=== PATIENT | male | born 1940 | race Caucasian/White ===

== ENCOUNTER 2019-07-26 05:56 | Inpatient (IN) | payer MEDICARE ==
[2019-07-25 12:05] LABS: BASOPHILS % (AUTO) 0.9 % (0-1); EOSINOPHILS # (AUTO) 0.2 X10'3 (0-0.9); EOSINOPHILS % (AUTO) 7.3 % (0-6); HEMATOCRIT 37.5 % (42.0-52.0); HEMOGLOBIN 12.6 g/dl (14.0-17.9); LYMPHOCYTES # (AUTO) 0.8 X10'3 (1.1-4.8); LYMPHOCYTES % (AUTO) 25.1 % (21-51); MEAN CORPUSCULAR HEMOGLOBIN 31.2 PG (27.0-31.0); MEAN CORPUSCULAR HGB CONC 33.6 g/dL (33.0-36.5); MEAN CORPUSCULAR VOLUME 92.8 FL (78-98); MEAN PLATELET VOLUME 7.9 FL (7.4-10.4); MONOCYTES # (AUTO) 0.3 X10'3 (0-0.9); MONOCYTES % (AUTO) 9.5 % (2-12); NEUTROPHILS # (AUTO) 1.9 X10'3 (1.8-7.7); NEUTROPHILS % (AUTO) 57.2 % (42-75); PLATELET COUNT 154 X10'3 (140-440); RED BLOOD COUNT 4.04 X10'6 (4.70-6.10); RED CELL DISTRIBUTION WIDTH 14.2 % (11.5-14.5); WHITE BLOOD COUNT 3.4 X10'3 (4.5-11.0)
[2019-07-25 12:15] LABS: ALBUMIN 3.6 G/DL (3.4-5.0); ANION GAP 5 (8-16); BLOOD UREA NITROGEN 24 MG/DL (7-18); BUN/CREATININE RATIO 16.1 (5.4-32.0); CALCIUM 8.6 MG/DL (8.5-10.1); CHLORIDE 108 MMOL/L (99-107); CREATININE 1.49 MG/DL (0.60-1.10); GLUCOSE 96 MG/DL (70-104); POTASSIUM 4.4 MMOL/L (3.5-5.1); SODIUM 142 MMOL/L (135-145); TOTAL CARBON DIOXIDE 28.7 MMOL/L (24-32); eGFR 45 ML/MIN
[2019-07-25 12:16] LABS: PARTIAL THROMBOPLASTIN TIME 31 SECONDS (22-32)
[2019-07-26] VITALS (18 sets, daily range): BP systolic 123–179; BP diastolic 47–99
[~2019-07-26] VITALS: Ht 185.4 cm; Wt 93.1 kg
[~2019-07-26 05:56] MED LIST: CELE200C PO; CLOP75TA15 PO; CLOP75TA8 PO; DOXY50CA2 PO; GABA-769 PO; HYDR200T84 PO; METO50TA16 PO; PROBIOTIC BLEN1 EACH PO; SIMV80TA2 PO; WARF3TAB PO; WARF6TAB PO
[2019-07-26] MEDS ORDERED: diphenhydrAMINE 25mg capsule PO PRN (06:15)
[2019-07-26] MEDS ORDERED: acetylcysteine 200 MG/ml 4ml vial PO PRN (06:15)
[2019-07-26] MEDS ORDERED: LORazepam 0.5 MG tablet PO PRN (06:15)
[2019-07-26] MEDS ORDERED: ASPI-611 PO (06:39)
[2019-07-26] MEDS ORDERED: ATOR40TA PO (06:39)
[2019-07-26] MEDS ORDERED: LEVO125T PO (06:39)
[2019-07-26] MEDS ORDERED: sodium bicarbonate inj. 100 ML in dextrose 5%-water 1,000 ML IV ONE (06:45)
[2019-07-26] MEDS ORDERED: LIDOcaine/PRILOcaine 5gm cream TP ONE (07:15)
[2019-07-26] MEDS ORDERED: nitroGLYCERIN-Tridil 50MG/D5W 250 ML IV ONE (07:37)
[2019-07-26] MEDS ORDERED: LIDOcaine 1% (10mg/ml)w/preservative injection 20ml MDV ONE (07:38)
[2019-07-26] MEDS ORDERED: midazolam 2 mg/2 ml injection ONE (07:38)
[2019-07-26] MEDS ORDERED: heparin 1,000unit/ml 10ml vial 10 ML ONE (07:38)
[2019-07-26] MEDS ORDERED: fentaNYL/PF 50MCG/1 ML 2ML syringe ONE (07:38)
[2019-07-26] MEDS ORDERED: iohexol 350 MG/ML 50ML vial IV ONE (07:38)
[2019-07-26] MEDS ORDERED: iohexol 350MG/ML 100ml bottle IV ONE (07:38)
[2019-07-26] MEDS ORDERED: verapamil 2.5 mg/ml inj IV ONE (07:38)
[2019-07-26] MEDS ORDERED: iohexol 350 MG/1 ML 200ml bottle ONE (08:43)
[2019-07-26] MEDS ORDERED: heparin 25,000 UNIT/250ml bag 250 ML IV ONE (08:55)
[2019-07-26] MEDS ORDERED: heparin 1,000 UNITS/NS 500ml 500 ML ONE (09:48)
[2019-07-26] MEDS ORDERED: tirofiban 12.5mg in NS 250mL 250 ML IV ONE (10:32)
[2019-07-26] MEDS ORDERED: tirofiban 12.5mg in NS 250mL 250 ML IV SCH (11:30)
[2019-07-26] MEDS ORDERED: heparin 25,000 UNIT/250ml bag 250 ML IV SCH (12:03)
[2019-07-26] MEDS ORDERED: heparin 10,000 units/1 ML INJ IV PRN (12:05)
[2019-07-26] MEDS: sodium bicarbonate inj. 100 ML in dextrose 5%-water 1,000 ML IV SCH (15:22)
--- NOTE | 2019-07-26 15:52 | NUR ---
Problems reprioritized. Patient report given, questions answered & plan of care reviewed with JACEY Smith RN.
[2019-07-26 16:24] LABS: BASOPHILS % (AUTO) 0.7 % (0-1); EOSINOPHILS # (AUTO) 0.3 X10'3 (0-0.9); HEMATOCRIT 33.7 % (42.0-52.0); HEMOGLOBIN 11.2 g/dl (14.0-17.9); LYMPHOCYTES % (AUTO) 29.4 % (21-51); MEAN CORPUSCULAR HEMOGLOBIN 31.1 PG (27.0-31.0); MEAN CORPUSCULAR HGB CONC 33.3 g/dL (33.0-36.5); MEAN CORPUSCULAR VOLUME 93.4 FL (78-98); MEAN PLATELET VOLUME 7.5 FL (7.4-10.4); MONOCYTES # (AUTO) 0.3 X10'3 (0-0.9); MONOCYTES % (AUTO) 8.9 % (2-12); NEUTROPHILS # (AUTO) 1.7 X10'3 (1.8-7.7); PLATELET COUNT 131 X10'3 (140-440); RED BLOOD COUNT 3.61 X10'6 (4.70-6.10); RED CELL DISTRIBUTION WIDTH 14.1 % (11.5-14.5); WHITE BLOOD COUNT 3.2 X10'3 (4.5-11.0)
[2019-07-26 16:33] LABS: PARTIAL THROMBOPLASTIN TIME 31 SECONDS (22-32)
--- NOTE | 2019-07-26 18:15 | NUR ---
Patient in room MED 313. I have received report from CODY Penn and had the opportunity to ask questions and assume patient care.
[2019-07-26] MEDS ORDERED: METO50TA16 PO (21:06)
[2019-07-26] MEDS: metoprolol tartrate 25mg tablet PO SCH (21:07)
[2019-07-26] MEDS: acetylcysteine 200 MG/ml 4ml vial PO SCH (21:08)
[2019-07-27 02:00] VITALS: BP 157/56
[2019-07-27] MEDS: sodium bicarbonate inj. 100 ML in dextrose 5%-water 1,000 ML IV SCH (02:56)
[2019-07-27 04:35] LABS: BASOPHILS % (AUTO) 0.6 % (0-1); EOSINOPHILS # (AUTO) 0.2 X10'3 (0-0.9); EOSINOPHILS % (AUTO) 6.5 % (0-6); HEMATOCRIT 33.1 % (42.0-52.0); HEMOGLOBIN 11.2 g/dl (14.0-17.9); LYMPHOCYTES # (AUTO) 0.8 X10'3 (1.1-4.8); LYMPHOCYTES % (AUTO) 21.5 % (21-51); MEAN CORPUSCULAR HEMOGLOBIN 31.1 PG (27.0-31.0); MEAN CORPUSCULAR HGB CONC 33.6 g/dL (33.0-36.5); MEAN CORPUSCULAR VOLUME 92.3 FL (78-98); MEAN PLATELET VOLUME 7.5 FL (7.4-10.4); MONOCYTES # (AUTO) 0.4 X10'3 (0-0.9); MONOCYTES % (AUTO) 9.5 % (2-12); NEUTROPHILS # (AUTO) 2.4 X10'3 (1.8-7.7); NEUTROPHILS % (AUTO) 61.9 % (42-75); PLATELET COUNT 138 X10'3 (140-440); RED BLOOD COUNT 3.59 X10'6 (4.70-6.10); RED CELL DISTRIBUTION WIDTH 14.2 % (11.5-14.5); WHITE BLOOD COUNT 3.8 X10'3 (4.5-11.0)
[2019-07-27 05:03] LABS: ALBUMIN 3.1 G/DL (3.4-5.0); ANION GAP 6 (8-16); BLOOD UREA NITROGEN 22 MG/DL (7-18); BUN/CREATININE RATIO 18.2 (5.4-32.0); CALCIUM 8.3 MG/DL (8.5-10.1); CHLORIDE 109 MMOL/L (99-107); CREATININE 1.21 MG/DL (0.60-1.10); GLUCOSE 113 MG/DL (70-104); POTASSIUM 3.6 MMOL/L (3.5-5.1); SODIUM 143 MMOL/L (135-145); TOTAL CARBON DIOXIDE 28.2 MMOL/L (24-32); eGFR 58 ML/MIN
--- NOTE | 2019-07-27 06:25 | NUR ---
Patient in room MED 313. I have received report from RONNIE ROSS and had the opportunity to ask questions and assume patient care.
--- NOTE | 2019-07-27 06:29 | NUR ---
Problems reprioritized. Patient report given, questions answered & plan of care reviewed with CODY Gomez.
[2019-07-27 07:11] VITALS: BP 157/52
[2019-07-27 07:46] LABS: ISTAT Hct MIX 32 %PCV (42-52); ISTAT O2 SATURATION MIX VENOUS 67 % (60-80); ISTAT SOURCE MIX
[2019-07-27 07:46] LABS: ISTAT HGB ART 10.9 g/dl (14.0-18.0); ISTAT Hct ART 32 %PCV (42-52); ISTAT O2 SATURATION ARTERIAL 95 % (95-98); ISTAT SOURCE ART
[2019-07-27 08:00] VITALS: BP_SYST 157
[2019-07-27] MEDS: metoprolol tartrate 25mg tablet PO SCH (08:00)
[2019-07-27] MEDS ORDERED: atorvastatin 20mg tablet PO SCH (08:00)
[2019-07-27] MEDS ORDERED: levoTHYROXINE 125mcg tablet PO SCH (08:00)
[2019-07-27] MEDS ORDERED: aspirin 81mg tablet.DR PO SCH (08:00)
[2019-07-27] MEDS ORDERED: ATOR40TA PO (10:11)
[2019-07-27] MEDS ORDERED: CLOP75TA15 PO (10:11)
[2019-07-27] MEDS ORDERED: TICA90TA PO (10:16)
[2019-07-27] MEDS: acetylcysteine 200 MG/ml 4ml vial PO SCH (10:27)
[2019-07-27 10:42] LABS: CHOL/HDL RATIO 2.4 (0.00-4.99); CHOLESTEROL 113 MG/DL (0-200); HDL CHOLESTEROL 48 MG/DL (35-60); LDL CHOLESTEROL 54 MG/DL (50-100); TRIGLYCERIDES 116 MG/DL (20-135)
--- NOTE | 2019-07-27 11:29 | NUR ---
Student charting and med documentation: I have reviewed and agree with all interventions, assessments performed and documented by Juliann ROSS. Addendum: 07/27/19 at 1433 by Patricia Cano RN [place] charting and med documentation: I have reviewed and agree with all interventions, assessments performed and documented by Juliann ROSS.
--- NOTE | 2019-07-27 12:01 | NUR ---
PATIENT DISCHARGE INSTRUCTIONS GIVEN TO PATIENT INCLUDING MEDICATIONS AND FOLLOW UP APPOINTMENTS. PATIENT VERBALIZED UNDERSTANDING AND ALL QUESTIONS AND CONCERNS ADDRESSED AT THIS TIME. PIV REMOVED WITH TIP INTACT AND HEMOSTASIS ACHIEVED. PATIENT DENIED NEED FOR WHEELCHAIR. PATIENT WALK INDEPENDENTLY TO LOBBY VIA ELEVATOR. PRESCRIPTIONS FAXED [facility] ON [facility]. CALLED AND RECEIVED VERIFICATION FROM PHARMACY STAFF THAT ORDERS WERE RECEIVED AND COMPLETE AND THEY ARE WORKING ON FILLING THE MEDICATIONS AT THIS TIME.
[2019-07-27] MEDS ORDERED: warfarin 3mg tablet PO SCH (21:00)
[2019-07-28] MEDS ORDERED: celeCOXIB 100mg capsule PO SCH (08:00)
[2019-07-30] MEDS ORDERED: warfarin 3mg tablet PO SCH (21:00)
== END 2019-07-27 11:40 | disposition home or self-care (01) | DRG 247 ==
LOC: SSTAY O 05:56 → MED 3N 17:31
PROVIDERS: ADMIT Internal Medicine Cardiovascular Disease; ATTEND Internal Medicine Cardiovascular Disease
PROC: 4A023N8 Measurement of Cardiac Sampling and Pressure, Bilateral, Percutaneous Approach (ICD-10-PCS; principal; 2019-07-26)
PROC: 027135Z Dilation of Coronary Artery, Two Arteries with Two Drug-eluting Intraluminal Devices, Percutaneous Approach (ICD-10-PCS; 2019-07-26)
PROC: B2111ZZ Fluoroscopy of Multiple Coronary Arteries using Low Osmolar Contrast (ICD-10-PCS; 2019-07-26)
PROC: B3101ZZ Fluoroscopy of Thoracic Aorta using Low Osmolar Contrast (ICD-10-PCS; 2019-07-26)
DX: I25.10 Atherosclerotic heart disease of native coronary artery without angina pectoris (principal); I50.32 Chronic diastolic (congestive) heart failure; I35.0 Nonrheumatic aortic (valve) stenosis; N18.2 Chronic kidney disease, stage 2 (mild); Z79.01 Long term (current) use of anticoagulants; Z95.2 Presence of prosthetic heart valve; Z95.5 Presence of coronary angioplasty implant and graft
CPT/HCPCS: 36415; 80048; 80061; 82803; 83880; 84443; 85014; 85025; 85347; 85610; 85730; 92920; 92921; 93005; 93456; 93567; 99152; 99153; A4620; A5120; C1725; C1769; C1892; C1894; G0378; J1644; J2001; J2250; J3010; J3246; J3490; Q0163; Q9967

== ENCOUNTER 2021-10-07 13:43 | Outpatient (CLI) | payer MEDICARE ==
[~2021-10-07 13:43] MED LIST changes: +ASPI-611 PO; +ATOR-2 PO; -CELE200C PO; -CLOP75TA15 PO; -CLOP75TA8 PO; -DOXY50CA2 PO; -GABA-769 PO; -HYDR200T84 PO; +LEVO125T PO; +LOP12.5T PO; -METO50TA16 PO; -PROBIOTIC BLEN1 EACH PO; -SIMV80TA2 PO; -WARF3TAB PO; +WARF3TAB56 PO; -WARF6TAB PO; +WARF6TAB49 PO
== END 2021-10-07 23:59 | disposition home or self-care (01) ==
LOC: CARD DIAG 13:43
PROVIDERS: ATTEND Internal Medicine Cardiovascular Disease
DX: I08.1 Rheumatic disorders of both mitral and tricuspid valves (principal)
CPT/HCPCS: 93306

== ENCOUNTER 2021-10-09 14:46 | Emergency (ER) | payer MEDICARE ==
[~2021-10-09] VITALS: Ht 170.2 cm; Wt 94.1 kg
[2021-10-09 15:33] VITALS: BP 136/57
[2021-10-09 16:24] LABS: EOSINOPHILS # (AUTO) 0.1 X10'3 (0-0.9); EOSINOPHILS % (AUTO) 3.6 % (0-6); HEMATOCRIT 37.1 % (42.0-52.0); HEMOGLOBIN 11.9 g/dl (14.0-17.9); LYMPHOCYTES # (AUTO) 0.9 X10'3 (1.1-4.8); LYMPHOCYTES % (AUTO) 23.2 % (21-51); MEAN CORPUSCULAR HEMOGLOBIN 29.7 PG (27.0-31.0); MEAN CORPUSCULAR HGB CONC 32.2 g/dL (33.0-36.5); MEAN CORPUSCULAR VOLUME 92.2 FL (78-98); MEAN PLATELET VOLUME 8.3 FL (7.4-10.4); MONOCYTES # (AUTO) 0.3 X10'3 (0-0.9); MONOCYTES % (AUTO) 9.1 % (2-12); NEUTROPHILS # (AUTO) 2.3 X10'3 (1.8-7.7); NEUTROPHILS % (AUTO) 63.1 % (42-75); PLATELET COUNT 96 X10'3 (140-440); RED BLOOD COUNT 4.02 X10'6 (4.70-6.10); RED CELL DISTRIBUTION WIDTH 15.7 % (11.5-14.5); WHITE BLOOD COUNT 3.7 X10'3 (4.5-11.0)
[2021-10-09 16:39] LABS: ALANINE AMINOTRANSFERASE 60 U/L (12-78); ALBUMIN 3.8 G/DL (3.4-5.0); ALBUMIN/GLOBULIN RATIO 1.3 (1.1-1.5); ALKALINE PHOSPHATASE 103 IU/L (46-116); ANION GAP 8 (8-16); ASPARTATE AMINO TRANSFERASE 51 U/L (10-37); BILIRUBIN,TOTAL 0.6 MG/DL (0.1-1.0); BLOOD UREA NITROGEN 35 MG/DL (7-18); BUN/CREATININE RATIO 18.9 (5.4-32.0); CALCIUM 8.8 MG/DL (8.5-10.1); CHLORIDE 109 MMOL/L (99-107); CREATININE 1.85 MG/DL (0.60-1.10); GLUCOSE 100 MG/DL (70-104); POTASSIUM 4.9 MMOL/L (3.5-5.1); SODIUM 141 MMOL/L (135-145); TOTAL CARBON DIOXIDE 24.1 MMOL/L (24-32); TOTAL PROTEIN 6.8 G/DL (6.4-8.2); eGFR 35 ML/MIN
[2021-10-09] MEDS ORDERED: bumetanide 0.25mg/ml 4ml vial IV STA (16:51)
[2021-10-09] MEDS ORDERED: furosemide 20 MG/2 ML vial IV ONE (17:05)
[2021-10-09 17:17] LABS: PLATELET ESTIMATE DECREASED
[2021-10-09 17:18] LABS: BURR CELLS 1+; SCHISTOCYTES FEW
[2021-10-09] MEDS ORDERED: CELE200C PO (17:56)
[2021-10-09] MEDS ORDERED: SUMA100T16 PO (17:56)
[2021-10-09] MEDS ORDERED: OMEP40CA21 PO (17:56)
[2021-10-09] MEDS ORDERED: HYDR200T84 PO (17:56)
[2021-10-09] MEDS ORDERED: POTASSIUM BICARB 20meq eff tab 20 MEQ TABLET.EFF PO ONE (18:05)
[2021-10-09] MEDS ORDERED: POTA-207 PO (18:29)
[2021-10-09] MEDS ORDERED: FURO-150 PO (18:29)
== END 2021-10-09 18:28 | disposition home or self-care (01) ==
LOC: ER 14:46
DX: I50.9 Heart failure, unspecified (principal); R06.02 Shortness of breath; I25.10 Atherosclerotic heart disease of native coronary artery without angina pectoris; E78.00 Pure hypercholesterolemia, unspecified; G89.29 Other chronic pain; Z95.0 Presence of cardiac pacemaker; Z98.890 Other specified postprocedural states; Z88.8 Allergy status to other drugs, medicaments and biological substances; Z79.82 Long term (current) use of aspirin; Z79.899 Other long term (current) drug therapy
CPT/HCPCS: 36415; 71045; 80053; 83880; 84484; 85008; 85025; 93005; 96374; 99285; J1940

== ENCOUNTER 2021-11-06 07:10 | Day surgery (SDC) | payer MEDICARE ==
[2021-11-05 12:56] LABS: BASOPHILS % (AUTO) 1.1 % (0-1); EOSINOPHILS # (AUTO) 0.2 X10'3 (0-0.9); EOSINOPHILS % (AUTO) 4.8 % (0-6); HEMATOCRIT 37.9 % (42.0-52.0); HEMOGLOBIN 12.4 g/dl (14.0-17.9); LYMPHOCYTES % (AUTO) 25.6 % (21-51); MEAN CORPUSCULAR HEMOGLOBIN 29.5 PG (27.0-31.0); MEAN CORPUSCULAR HGB CONC 32.8 g/dL (33.0-36.5); MEAN PLATELET VOLUME 8.3 FL (7.4-10.4); MONOCYTES # (AUTO) 0.4 X10'3 (0-0.9); MONOCYTES % (AUTO) 10.5 % (2-12); NEUTROPHILS # (AUTO) 2.3 X10'3 (1.8-7.7); PLATELET COUNT 116 X10'3 (140-440); RED BLOOD COUNT 4.21 X10'6 (4.70-6.10); RED CELL DISTRIBUTION WIDTH 14.9 % (11.5-14.5)
[2021-11-05 13:01] LABS: ALBUMIN 3.8 G/DL (3.4-5.0); ANION GAP 9 (8-16); BLOOD UREA NITROGEN 47 MG/DL (7-18); BUN/CREATININE RATIO 21.6 (5.4-32.0); CALCIUM 9.1 MG/DL (8.5-10.1); CHLORIDE 105 MMOL/L (99-107); CREATININE 2.18 MG/DL (0.60-1.10); GLUCOSE 95 MG/DL (70-104); POTASSIUM 4.2 MMOL/L (3.5-5.1); SODIUM 140 MMOL/L (135-145); TOTAL CARBON DIOXIDE 25.8 MMOL/L (24-32); eGFR 29 ML/MIN
[~2021-11-06] VITALS: Ht 185.4 cm; Wt 87.8 kg
[2021-11-06] VITALS (13 sets, daily range): BP systolic 105–131; BP diastolic 45–60
[~2021-11-06 07:10] MED LIST changes: +CELE200C PO; +FURO-150 PO; +HYDR200T84 PO; +OMEP40CA21 PO; +POTA-207 PO; +SUMA100T16 PO
[2021-11-06] MEDS ORDERED: amiodarone 150mg/dext, iso-os 100 ML IV ONE (07:35)
[2021-11-06] MEDS ORDERED: atropine 0.1mg/ml 10ml syringe IV ONE (07:35)
[2021-11-06] MEDS ORDERED: diphenhydrAMINE 25mg capsule PO ONE (07:35)
[2021-11-06] MEDS ORDERED: morphine 10mg/ml inj. IV ONE (07:35)
[2021-11-06] MEDS ORDERED: LORazepam 0.5 MG tablet PO ONE (07:35)
[2021-11-06] MEDS ORDERED: MIDAZolam 1mg/ml 10ml vial IV ONE (07:35)
[2021-11-06] MEDS ORDERED: normal saline 1000ml 1,000 ML IV SCH (07:35)
[2021-11-06] MEDS ORDERED: POTA20PA40 PO (08:16)
[2021-11-06] MEDS ORDERED: FURO-149 PO (08:16)
[2021-11-06] MEDS ORDERED: AMIO200T61 PO (08:17)
== END 2021-11-06 12:25 | disposition home or self-care (01) ==
LOC: SSTAY O 07:10
PROVIDERS: ATTEND Internal Medicine Cardiovascular Disease
DX: I48.19 Other persistent atrial fibrillation (principal); I25.10 Atherosclerotic heart disease of native coronary artery without angina pectoris; I50.30 Unspecified diastolic (congestive) heart failure; E78.00 Pure hypercholesterolemia, unspecified; Z95.5 Presence of coronary angioplasty implant and graft; Z95.2 Presence of prosthetic heart valve; Z98.890 Other specified postprocedural states; Z79.01 Long term (current) use of anticoagulants
CPT/HCPCS: 36415; 80048; 85025; 85610; 92960; 93005; J0461; J2250; J2274; J7030; Q0163

== ENCOUNTER 2022-01-21 10:23 | Outpatient (CLI) | payer MEDICARE ==
[~2022-01-21 10:23] MED LIST changes: +AMIO200T61 PO; -CELE200C PO; +FURO-149 PO; -FURO-150 PO; -OMEP40CA21 PO; -POTA-207 PO; +POTA20PA40 PO; -SUMA100T16 PO
[2022-01-21 11:04] LABS: TOTAL HEMOGLOBIN 13.5 G/dl (14.0-18.0)
== END 2022-01-21 23:59 | disposition home or self-care (01) ==
LOC: RT 10:23
PROVIDERS: ATTEND Internal Medicine Cardiovascular Disease
DX: R94.2 Abnormal results of pulmonary function studies (principal); I48.91 Unspecified atrial fibrillation; M25.78 Osteophyte, vertebrae; Z79.899 Other long term (current) drug therapy
CPT/HCPCS: 71046; 85018; 94010; 94727; 94729

== ENCOUNTER 2022-03-03 13:06 | Emergency (ER) | payer MEDICARE ==
[~2022-03-03] VITALS: Ht 182.9 cm; Wt 90.0 kg
[2022-03-03 13:18] VITALS: BP 125/54
[2022-03-03] MEDS ORDERED: ACET-1059 PO (15:16)
[2022-03-03] MEDS ORDERED: acetaminophen w/codeine (30MG) #3 tablet PO ONE (15:20)
== END 2022-03-03 15:53 | disposition home or self-care (01) ==
LOC: ER 13:06
DX: M25.461 Effusion, right knee (principal); M25.561 Pain in right knee; M17.12 Unilateral primary osteoarthritis, left knee; I25.10 Atherosclerotic heart disease of native coronary artery without angina pectoris; E78.00 Pure hypercholesterolemia, unspecified; G89.29 Other chronic pain; Z95.0 Presence of cardiac pacemaker; Z98.890 Other specified postprocedural states; Z88.8 Allergy status to other drugs, medicaments and biological substances; Z79.82 Long term (current) use of aspirin; Z79.899 Other long term (current) drug therapy
CPT/HCPCS: 29505; 73560; 99283

== ENCOUNTER 2022-06-26 14:30 | Outpatient (CLI) | payer MEDICARE | END 2022-06-26 23:59 | disposition home or self-care (01) | LOC: CARD DIAG 14:30 | PROVIDERS: ATTEND Internal Medicine Cardiovascular Disease | DX: I08.9 Rheumatic multiple valve disease, unspecified (principal) | CPT/HCPCS: 93306 ==

== ENCOUNTER 2022-12-29 10:48 | Inpatient (IN) | payer MEDICARE ==
[~2022-12-29] VITALS: Ht 185.4 cm; Wt 98.2 kg
[2022-12-29] VITALS (10 sets, daily range): BP systolic 107–144; BP diastolic 57–77
[2022-12-29 11:17] LABS: BASOPHILS % (AUTO) 0.5 % (0-1); EOSINOPHILS % (AUTO) 0.2 % (0-6); HEMATOCRIT 34.6 % (42.0-52.0); HEMOGLOBIN 11.4 g/dl (14.0-17.9); LYMPHOCYTES # (AUTO) 0.4 X10'3 (1.1-4.8); LYMPHOCYTES % (AUTO) 10.8 % (21-51); MEAN CORPUSCULAR HEMOGLOBIN 30.2 PG (27.0-31.0); MEAN CORPUSCULAR VOLUME 91.4 FL (78-98); MEAN PLATELET VOLUME 7.8 FL (7.4-10.4); MONOCYTES # (AUTO) 0.3 X10'3 (0-0.9); MONOCYTES % (AUTO) 7.5 % (2-12); PLATELET COUNT 101 X10'3 (140-440); RED BLOOD COUNT 3.79 X10'6 (4.70-6.10); RED CELL DISTRIBUTION WIDTH 16.3 % (11.5-14.5); WHITE BLOOD COUNT 3.8 X10'3 (4.5-11.0)
[2022-12-29 11:25] LABS: ALANINE AMINOTRANSFERASE 68 U/L (12-78); ALBUMIN 3.5 G/DL (3.4-5.0); ALBUMIN/GLOBULIN RATIO 1.2 (1.1-1.5); ALKALINE PHOSPHATASE 127 IU/L (46-116); ANION GAP 8 (8-16); ASPARTATE AMINO TRANSFERASE 96 U/L (10-37); BILIRUBIN,TOTAL 1.2 MG/DL (0.1-1.0); BLOOD UREA NITROGEN 41 MG/DL (7-18); BUN/CREATININE RATIO 18.7 (5.4-32.0); CALCIUM 8.7 MG/DL (8.5-10.1); CHLORIDE 95 MMOL/L (99-107); CREATININE 2.19 MG/DL (0.60-1.10); GLUCOSE 162 MG/DL (70-104); POTASSIUM 3.6 MMOL/L (3.5-5.1); SODIUM 129 MMOL/L (135-145); TOTAL CARBON DIOXIDE 25.9 MMOL/L (24-32); TOTAL PROTEIN 6.4 G/DL (6.4-8.2); eGFR 29 ML/MIN
[2022-12-29 11:33] LABS: MAGNESIUM 1.9 MG/DL (1.5-2.4)
[2022-12-29] MEDS ORDERED: heparin 10,000 units/1 ML INJ IV ONE (12:00)
[2022-12-29] MEDS ORDERED: heparin 25,000 UNIT/250ml bag 250 ML IV PRN (12:00)
[2022-12-29 12:24] LABS: APTT 53 SECONDS (22-32)
[2022-12-29] MEDS ORDERED: aspirin 81mg tab.chew PO ONE (12:30)
[2022-12-29] MEDS ORDERED: magnesium Cl slow-release 64mg tablet PO PRN (12:55)
[2022-12-29] MEDS ORDERED: ondansetron/PF 4mg/2ml inj IV PRN (12:55)
[2022-12-29] MEDS ORDERED: magnesium 4gm in 100ml NS 100 ML IV PRN (12:55)
[2022-12-29] MEDS ORDERED: potassium Cl 20 mEq SR tablet PO PRN (12:55)
[2022-12-29] MEDS ORDERED: potassium Cl 40MEQ/1/2NS 520ml 520 ML IV PRN (12:55)
[2022-12-29] MEDS ORDERED: acetaminophen 325mg tablet PO PRN ×2 (12:55)
[2022-12-29] MEDS ORDERED: furosemide 40mg/4ml inj IV ONE (13:00)
--- NOTE | 2022-12-29 14:12 | NUR ---
bladder scanner 204-208 ml
[2022-12-29] MEDS ORDERED: WARF3TAB56 PO (14:31)
[2022-12-29] MEDS ORDERED: SPIR25TA5 PO (14:32)
[2022-12-29] MEDS ORDERED: FLO0.4C PO (14:34)
[2022-12-29] MEDS ORDERED: SUMA100T16 PO (14:34)
[2022-12-29] MEDS ORDERED: GUAI-652 PO (14:36)
[2022-12-29] MEDS ORDERED: amiodarone 200mg tablet PO SCH (15:00)
--- NOTE | 2022-12-29 16:00 | NUR ---
pt refused amio 200mg po. Says he only takes it once a day and he already took it in the ER. Checked med rec, shows once a day.
[2022-12-29] MEDS ORDERED: HYDR200T84 PO (16:19)
--- NOTE | 2022-12-29 18:46 | NUR ---
Student documentation: I have reviewed and agree with all interventions, assessments performed and documented by Gloria.
--- NOTE | 2022-12-29 18:47 | NUR ---
Student Medication Administration: For this medication-pass time frame, all medication were reviewed, dispensed, administered and documented per hospital policy by .
[2022-12-29] MEDS ORDERED: metolazone 2.5mg tablet PO ONE (19:15)
[2022-12-29] MEDS: DOBUTamine-DoBUTrex 500mg/D5W 250 ML IV SCH (19:24)
[2022-12-29] MEDS: K and/or MAG REPLACEMENT MC SCH (20:00)
[2022-12-29] MEDS: metoprolol tartrate 12.5mg (1/2 tablet) PO SCH (20:43)
[2022-12-29] MEDS: furosemide 40mg/4ml inj IV SCH (20:43)
[2022-12-30] VITALS (13 sets, daily range): BP systolic 96–137; BP diastolic 51–99
[2022-12-30] MEDS: levoTHYROXINE 125mcg tablet PO SCH (05:05)
--- NOTE | 2022-12-30 06:21 | NUR ---
Problems reprioritized. Patient report given, questions answered & plan of care reviewed with Loree ROSS.
[2022-12-30 06:36] LABS: BASOPHILS % (AUTO) 0.4 % (0-1); EOSINOPHILS % (AUTO) 0.1 % (0-6); HEMATOCRIT 32.1 % (42.0-52.0); HEMOGLOBIN 10.6 g/dl (14.0-17.9); LYMPHOCYTES # (AUTO) 0.3 X10'3 (1.1-4.8); LYMPHOCYTES % (AUTO) 10.4 % (21-51); MEAN CORPUSCULAR HEMOGLOBIN 29.8 PG (27.0-31.0); MEAN CORPUSCULAR HGB CONC 32.9 g/dL (33.0-36.5); MEAN CORPUSCULAR VOLUME 90.6 FL (78-98); MEAN PLATELET VOLUME 7.7 FL (7.4-10.4); MONOCYTES # (AUTO) 0.3 X10'3 (0-0.9); MONOCYTES % (AUTO) 9.8 % (2-12); NEUTROPHILS # (AUTO) 2.4 X10'3 (1.8-7.7); NEUTROPHILS % (AUTO) 79.3 % (42-75); PLATELET COUNT 89 X10'3 (140-440); RED BLOOD COUNT 3.54 X10'6 (4.70-6.10); RED CELL DISTRIBUTION WIDTH 16.5 % (11.5-14.5); WHITE BLOOD COUNT 3.1 X10'3 (4.5-11.0)
--- NOTE | 2022-12-30 06:36 | NUR ---
Patient in room PCU 3013. I have received report from CODY NORMAN, and had the opportunity to ask questions and assume patient care.
[2022-12-30 06:59] LABS: ALANINE AMINOTRANSFERASE 60 U/L (12-78); ALBUMIN 3.1 G/DL (3.4-5.0); ALBUMIN/GLOBULIN RATIO 1.2 (1.1-1.5); ALKALINE PHOSPHATASE 112 IU/L (46-116); ANION GAP 11 (8-16); ASPARTATE AMINO TRANSFERASE 81 U/L (10-37); BLOOD UREA NITROGEN 42 MG/DL (7-18); BUN/CREATININE RATIO 20.9 (5.4-32.0); CALCIUM 8.9 MG/DL (8.5-10.1); CHLORIDE 97 MMOL/L (99-107); CREATININE 2.01 MG/DL (0.60-1.10); GLUCOSE 102 MG/DL (70-104); POTASSIUM 3.2 MMOL/L (3.5-5.1); SODIUM 133 MMOL/L (135-145); TOTAL PROTEIN 5.7 G/DL (6.4-8.2); eGFR 32 ML/MIN
[2022-12-30] MEDS: K and/or MAG REPLACEMENT MC SCH ×2 (08:00→19:25)
[2022-12-30] MEDS: furosemide 40mg/4ml inj IV SCH ×3 (09:38→21:09)
[2022-12-30] MEDS: hydroxychloroquine 200mg tablet PO SCH (09:40)
[2022-12-30] MEDS: potassium Cl 20 mEq SR tablet PO PRN ×2 (09:40→14:06)
[2022-12-30] MEDS: atorvastatin 20mg tablet PO SCH (09:40)
[2022-12-30] MEDS: tamsulosin 0.4mg capsule PO SCH (09:41)
[2022-12-30] MEDS: amiodarone 200mg tablet PO SCH (09:41)
[2022-12-30] MEDS: metoprolol tartrate 12.5mg (1/2 tablet) PO SCH ×2 (12:10→19:19)
[2022-12-30] MEDS: DOBUTamine-DoBUTrex 500mg/D5W 250 ML IV SCH (12:10)
[2022-12-30] MEDS ORDERED: metolazone 2.5mg tablet PO ONE (12:15)
[2022-12-30] MEDS ORDERED: metolazone 2.5mg tablet PO SCH (13:38)
[2022-12-30] MEDS ORDERED: albuterol 2.5 MG/3 ML nebule NEB SCH (14:00)
[2022-12-30] MEDS: potassium Cl 20 mEq SR tablet PO SCH (17:51)
--- NOTE | 2022-12-30 18:33 | NUR ---
Problems reprioritized. Patient report given, questions answered & plan of care reviewed with CODY NORMAN.
[2022-12-30] MEDS: metolazone 2.5mg tablet PO SCH (19:19)
[2022-12-31] VITALS (14 sets, daily range): BP systolic 94–134; BP diastolic 50–70
[2022-12-31] MEDS: DOBUTamine-DoBUTrex 500mg/D5W 250 ML IV SCH ×2 (04:23→08:59)
[2022-12-31] MEDS: levoTHYROXINE 125mcg tablet PO SCH (04:43)
--- NOTE | 2022-12-31 06:48 | NUR ---
report given to Caitlin ROSS
[2022-12-31 07:04] LABS: BASOPHILS % (AUTO) 0.6 % (0-1); EOSINOPHILS % (AUTO) 0.5 % (0-6); HEMATOCRIT 30.9 % (42.0-52.0); HEMOGLOBIN 10.2 g/dl (14.0-17.9); LYMPHOCYTES # (AUTO) 0.4 X10'3 (1.1-4.8); MEAN CORPUSCULAR HEMOGLOBIN 29.8 PG (27.0-31.0); MEAN CORPUSCULAR HGB CONC 32.9 g/dL (33.0-36.5); MEAN CORPUSCULAR VOLUME 90.4 FL (78-98); MEAN PLATELET VOLUME 7.9 FL (7.4-10.4); MONOCYTES # (AUTO) 0.3 X10'3 (0-0.9); MONOCYTES % (AUTO) 10.9 % (2-12); NEUTROPHILS # (AUTO) 2.1 X10'3 (1.8-7.7); PLATELET COUNT 91 X10'3 (140-440); RED BLOOD COUNT 3.42 X10'6 (4.70-6.10); RED CELL DISTRIBUTION WIDTH 16.7 % (11.5-14.5); WHITE BLOOD COUNT 2.9 X10'3 (4.5-11.0)
[2022-12-31 07:21] LABS: ALANINE AMINOTRANSFERASE 58 U/L (12-78); ALBUMIN 3.1 G/DL (3.4-5.0); ALBUMIN/GLOBULIN RATIO 1.1 (1.1-1.5); ALKALINE PHOSPHATASE 110 IU/L (46-116); ANION GAP 8 (8-16); ASPARTATE AMINO TRANSFERASE 82 U/L (10-37); BLOOD UREA NITROGEN 43 MG/DL (7-18); BUN/CREATININE RATIO 19.8 (5.4-32.0); CALCIUM 9.1 MG/DL (8.5-10.1); CHLORIDE 95 MMOL/L (99-107); CREATININE 2.17 MG/DL (0.60-1.10); GLUCOSE 96 MG/DL (70-104); POTASSIUM 3.1 MMOL/L (3.5-5.1); SODIUM 131 MMOL/L (135-145); TOTAL CARBON DIOXIDE 27.9 MMOL/L (24-32); TOTAL PROTEIN 5.8 G/DL (6.4-8.2); eGFR 29 ML/MIN
[2022-12-31] MEDS: hydroxychloroquine 200mg tablet PO SCH (07:25)
[2022-12-31] MEDS: amiodarone 200mg tablet PO SCH (07:25)
[2022-12-31] MEDS: metoprolol tartrate 12.5mg (1/2 tablet) PO SCH ×2 (07:26→19:46)
[2022-12-31] MEDS: metolazone 2.5mg tablet PO SCH ×2 (07:26→19:46)
[2022-12-31] MEDS: atorvastatin 20mg tablet PO SCH (07:27)
[2022-12-31] MEDS: tamsulosin 0.4mg capsule PO SCH (07:27)
[2022-12-31] MEDS: furosemide 40mg/4ml inj IV SCH ×3 (07:30→21:00)
[2022-12-31] MEDS: potassium Cl 20 mEq SR tablet PO SCH ×3 (07:36→19:59)
[2022-12-31 07:48] LABS: ANISOCYTOSIS 1+; PLATELET ESTIMATE DECREASED; TOTAL CELLS COUNTED 100
[2022-12-31] MEDS: K and/or MAG REPLACEMENT MC SCH ×2 (08:00→20:00)
[2022-12-31] MEDS: potassium Cl 20 mEq SR tablet PO PRN ×2 (10:38→15:03)
[2022-12-31 11:49] LABS: D-DIMER 0.69 MG/L FEU (0-0.50)
--- NOTE | 2022-12-31 12:07 | NUR ---
Student documentation: I have reviewed and agree with all interventions, assessments performed and documented by Jose student nurse.
[2022-12-31] MEDS ORDERED: ondansetron 4mg rapidly disintigrating tab PO PRN (14:10)
[2022-12-31] MEDS ORDERED: albuterol 2.5 MG/3 ML nebule NEB ONE (15:45)
[2022-12-31] MEDS: docusate sod 100mg capsule PO SCH (20:00)
[2022-12-31] MEDS ORDERED: warfarin 3mg tablet PO ONE (21:00)
[2023-01-01] VITALS (13 sets, daily range): BP systolic 97–115; BP diastolic 53–67
--- NOTE | 2023-01-01 05:16 | NUR ---
Dr. gutierrez made aware that the blood pressure for this patient is still trending low. No new order given
[2023-01-01] MEDS: levoTHYROXINE 125mcg tablet PO SCH (05:20)
--- NOTE | 2023-01-01 05:37 | NUR ---
Patient in bed with the head of the bed elevated to semi-fowlers position. Patient has no signs or symptoms of distress. Call light within reach and all personal belongings within reach
[2023-01-01 07:24] LABS: BASOPHILS % (AUTO) 0.7 % (0-1); EOSINOPHILS % (AUTO) 0.5 % (0-6); HEMATOCRIT 29.7 % (42.0-52.0); HEMOGLOBIN 9.9 g/dl (14.0-17.9); LYMPHOCYTES # (AUTO) 0.5 X10'3 (1.1-4.8); LYMPHOCYTES % (AUTO) 14.4 % (21-51); MEAN CORPUSCULAR HEMOGLOBIN 30.1 PG (27.0-31.0); MEAN CORPUSCULAR HGB CONC 33.4 g/dL (33.0-36.5); MEAN PLATELET VOLUME 7.9 FL (7.4-10.4); MONOCYTES # (AUTO) 0.3 X10'3 (0-0.9); MONOCYTES % (AUTO) 10.8 % (2-12); NEUTROPHILS # (AUTO) 2.3 X10'3 (1.8-7.7); NEUTROPHILS % (AUTO) 73.6 % (42-75); PLATELET COUNT 95 X10'3 (140-440); WHITE BLOOD COUNT 3.1 X10'3 (4.5-11.0)
[2023-01-01 07:45] LABS: ALANINE AMINOTRANSFERASE 55 U/L (12-78); ALBUMIN 3.1 G/DL (3.4-5.0); ALBUMIN/GLOBULIN RATIO 1.2 (1.1-1.5); ALKALINE PHOSPHATASE 103 IU/L (46-116); ANION GAP 6 (8-16); ASPARTATE AMINO TRANSFERASE 77 U/L (10-37); BLOOD UREA NITROGEN 45 MG/DL (7-18); BUN/CREATININE RATIO 19.4 (5.4-32.0); CALCIUM 9.1 MG/DL (8.5-10.1); CHLORIDE 94 MMOL/L (99-107); CREATININE 2.32 MG/DL (0.60-1.10); GLUCOSE 92 MG/DL (70-104); POTASSIUM 3.6 MMOL/L (3.5-5.1); SODIUM 130 MMOL/L (135-145); TOTAL CARBON DIOXIDE 29.9 MMOL/L (24-32); TOTAL PROTEIN 5.6 G/DL (6.4-8.2); eGFR 27 ML/MIN
[2023-01-01] MEDS: K and/or MAG REPLACEMENT MC SCH ×2 (08:00→19:17)
[2023-01-01] MEDS ORDERED: warfarin 3mg tablet PO SCH (08:00)
[2023-01-01] MEDS: tamsulosin 0.4mg capsule PO SCH (08:28)
[2023-01-01] MEDS: hydroxychloroquine 200mg tablet PO SCH (08:28)
[2023-01-01] MEDS: furosemide 40mg/4ml inj IV SCH (08:28)
[2023-01-01] MEDS: metoprolol tartrate 12.5mg (1/2 tablet) PO SCH ×2 (08:28→19:13)
[2023-01-01] MEDS: amiodarone 200mg tablet PO SCH (08:28)
[2023-01-01] MEDS: atorvastatin 20mg tablet PO SCH (08:28)
[2023-01-01] MEDS: potassium Cl 20 mEq SR tablet PO SCH (08:28)
[2023-01-01] MEDS: metolazone 2.5mg tablet PO SCH ×2 (08:33→19:12)
[2023-01-01] MEDS: docusate sod 100mg capsule PO SCH ×2 (08:33→19:13)
[2023-01-01] MEDS ORDERED: furosemide inj 1,000 MG in normal saline 250ml IV soln 150 ML IV SCH (13:40)
[2023-01-01] MEDS: DOBUTamine-DoBUTrex 500mg/D5W 250 ML IV SCH (14:21)
--- NOTE | 2023-01-01 18:15 | NUR ---
Start of shift, patient in bed with the head of the bed elevated to semi-fowlers position. Patient watching TV and has no signs or symptoms of distress. Call light within reach and all personal belongings within rech
[2023-01-01] MEDS: warfarin 3mg tablet PO SCH (19:18)
[2023-01-02] VITALS (9 sets, daily range): BP systolic 97–115; BP diastolic 46–64
[2023-01-02] MEDS: levoTHYROXINE 125mcg tablet PO SCH (05:47)
[2023-01-02 07:09] LABS: BASOPHILS % (AUTO) 0.5 % (0-1); EOSINOPHILS % (AUTO) 0.7 % (0-6); HEMATOCRIT 31.3 % (42.0-52.0); HEMOGLOBIN 10.3 g/dl (14.0-17.9); LYMPHOCYTES # (AUTO) 0.5 X10'3 (1.1-4.8); LYMPHOCYTES % (AUTO) 13.3 % (21-51); MEAN CORPUSCULAR HEMOGLOBIN 29.5 PG (27.0-31.0); MEAN CORPUSCULAR HGB CONC 32.8 g/dL (33.0-36.5); MEAN CORPUSCULAR VOLUME 90.1 FL (78-98); MONOCYTES # (AUTO) 0.4 X10'3 (0-0.9); NEUTROPHILS # (AUTO) 2.6 X10'3 (1.8-7.7); NEUTROPHILS % (AUTO) 74.5 % (42-75); PLATELET COUNT 98 X10'3 (140-440); RED BLOOD COUNT 3.47 X10'6 (4.70-6.10); RED CELL DISTRIBUTION WIDTH 16.1 % (11.5-14.5); WHITE BLOOD COUNT 3.5 X10'3 (4.5-11.0)
[2023-01-02 07:25] LABS: ALANINE AMINOTRANSFERASE 59 U/L (12-78); ALBUMIN 3.2 G/DL (3.4-5.0); ALBUMIN/GLOBULIN RATIO 1.2 (1.1-1.5); ALKALINE PHOSPHATASE 106 IU/L (46-116); ANION GAP 7 (8-16); ASPARTATE AMINO TRANSFERASE 83 U/L (10-37); BLOOD UREA NITROGEN 48 MG/DL (7-18); CALCIUM 9.3 MG/DL (8.5-10.1); CHLORIDE 92 MMOL/L (99-107); CREATININE 2.53 MG/DL (0.60-1.10); GLUCOSE 94 MG/DL (70-104); SODIUM 131 MMOL/L (135-145); TOTAL CARBON DIOXIDE 32.5 MMOL/L (24-32); TOTAL PROTEIN 5.8 G/DL (6.4-8.2); eGFR 24 ML/MIN
[2023-01-02] MEDS: metolazone 2.5mg tablet PO SCH (08:00)
[2023-01-02] MEDS: K and/or MAG REPLACEMENT MC SCH ×3 (08:00→20:18)
[2023-01-02] MEDS: hydroxychloroquine 200mg tablet PO SCH (08:40)
[2023-01-02] MEDS: tamsulosin 0.4mg capsule PO SCH (08:40)
[2023-01-02] MEDS: docusate sod 100mg capsule PO SCH ×2 (08:40→20:20)
[2023-01-02] MEDS: potassium Cl 20 mEq SR tablet PO SCH ×2 (08:40→17:33)
[2023-01-02] MEDS: metoprolol tartrate 12.5mg (1/2 tablet) PO SCH ×2 (08:41→20:20)
[2023-01-02] MEDS: amiodarone 200mg tablet PO SCH (08:41)
[2023-01-02] MEDS: atorvastatin 20mg tablet PO SCH (08:41)
[2023-01-02] MEDS ORDERED: magnesium Cl slow-release 64mg tablet PO PRN (13:50)
[2023-01-02] MEDS ORDERED: potassium Cl 20 mEq SR tablet PO PRN (13:50)
[2023-01-02] MEDS ORDERED: potassium Cl 40MEQ/1/2NS 520ml 520 ML IV PRN (13:50)
[2023-01-02] MEDS ORDERED: magnesium 4gm in 100ml NS 100 ML IV PRN (13:50)
[2023-01-02] MEDS: potassium Cl 20 mEq SR tablet PO PRN (14:43)
[2023-01-02] MEDS: DOBUTamine-DoBUTrex 500mg/D5W 250 ML IV SCH (17:00)
[2023-01-02 17:44] LABS: CLARITY,URINE CLEAR (Clear); COLOR,URINE YELLOW (Yellow); GLUCOSE, URINE NEGATIVE (Neg); KETONES,URINE NEGATIVE (Neg); LEUKOCYTE ESTERASE ,URINE NEGATIVE (Neg); NITRITES, URINE NEGATIVE (Neg); OCCULT BLOOD,URINE NEGATIVE (Neg); PH,URINE 6.5 (4.8-8.0); PROTEIN,URINE NEGATIVE (Neg); UROBILINOGEN,URINE 0.2 E.U/dL (0.2-1.0)
[2023-01-02 17:45] LABS: UA COLLECTION TYPE NON-SPECIFIED
[2023-01-02] MEDS: warfarin 3mg tablet PO SCH (20:22)
[2023-01-03] MEDS: DOBUTamine-DoBUTrex 500mg/D5W 250 ML IV SCH ×2 (00:30→11:33)
[2023-01-03] MEDS: levoTHYROXINE 125mcg tablet PO SCH (04:51)
[2023-01-03 06:00] VITALS: BP 119/48
--- NOTE | 2023-01-03 06:28 | NUR ---
Patient in room PCU 3013. I have received report from Kati ROSS and had the opportunity to ask questions and assume patient care.Bedside report completed. Pt sleeping, No distress. Addendum: 01/03/23 at 0629 by Delicia Patrick RN Amended: Links added.
[2023-01-03 06:33] LABS: BASOPHILS % (AUTO) 0.7 % (0-1); EOSINOPHILS % (AUTO) 0.6 % (0-6); HEMATOCRIT 31.1 % (42.0-52.0); HEMOGLOBIN 10.5 g/dl (14.0-17.9); LYMPHOCYTES # (AUTO) 0.4 X10'3 (1.1-4.8); LYMPHOCYTES % (AUTO) 13.1 % (21-51); MEAN CORPUSCULAR HEMOGLOBIN 30.3 PG (27.0-31.0); MEAN CORPUSCULAR HGB CONC 33.8 g/dL (33.0-36.5); MEAN CORPUSCULAR VOLUME 89.6 FL (78-98); MEAN PLATELET VOLUME 7.7 FL (7.4-10.4); MONOCYTES # (AUTO) 0.4 X10'3 (0-0.9); MONOCYTES % (AUTO) 11.9 % (2-12); NEUTROPHILS # (AUTO) 2.3 X10'3 (1.8-7.7); NEUTROPHILS % (AUTO) 73.7 % (42-75); PLATELET COUNT 99 X10'3 (140-440); RED BLOOD COUNT 3.47 X10'6 (4.70-6.10); RED CELL DISTRIBUTION WIDTH 16.3 % (11.5-14.5); WHITE BLOOD COUNT 3.2 X10'3 (4.5-11.0)
[2023-01-03 07:08] LABS: ALANINE AMINOTRANSFERASE 58 U/L (12-78); ALBUMIN 3.2 G/DL (3.4-5.0); ALBUMIN/GLOBULIN RATIO 1.2 (1.1-1.5); ALKALINE PHOSPHATASE 106 IU/L (46-116); ANION GAP 8 (8-16); ASPARTATE AMINO TRANSFERASE 86 U/L (10-37); BLOOD UREA NITROGEN 54 MG/DL (7-18); BUN/CREATININE RATIO 20.9 (5.4-32.0); CALCIUM 9.6 MG/DL (8.5-10.1); CHLORIDE 92 MMOL/L (99-107); CREATININE 2.58 MG/DL (0.60-1.10); GLUCOSE 105 MG/DL (70-104); SODIUM 133 MMOL/L (135-145); TOTAL CARBON DIOXIDE 32.8 MMOL/L (24-32); TOTAL PROTEIN 5.9 G/DL (6.4-8.2); eGFR 24 ML/MIN
[2023-01-03 07:12] LABS: POTASSIUM 2.7 MMOL/L (3.5-5.1)
--- NOTE | 2023-01-03 07:18 | NUR ---
PAGER ID: [phone] MESSAGE: [id number]+ [id number]. Will replace per protocol. Delicia RADER
[2023-01-03] MEDS: tamsulosin 0.4mg capsule PO SCH (07:39)
[2023-01-03] MEDS: docusate sod 100mg capsule PO SCH ×2 (07:39→21:01)
[2023-01-03] MEDS: amiodarone 200mg tablet PO SCH (07:40)
[2023-01-03] MEDS: metoprolol tartrate 12.5mg (1/2 tablet) PO SCH ×2 (07:40→21:00)
[2023-01-03] MEDS: hydroxychloroquine 200mg tablet PO SCH (07:40)
[2023-01-03] MEDS: atorvastatin 20mg tablet PO SCH (07:41)
[2023-01-03] MEDS: potassium Cl 20 mEq SR tablet PO PRN ×3 (07:42→17:42)
[2023-01-03 08:00] VITALS: BP 119/66
[2023-01-03] MEDS: K and/or MAG REPLACEMENT MC SCH ×3 (08:00→20:00)
[2023-01-03] MEDS: potassium Cl 20 mEq SR tablet PO SCH ×2 (09:42→17:41)
[2023-01-03] MEDS: metolazone 2.5mg tablet PO SCH (09:43)
[2023-01-03] MEDS: spironolactone 25 MG tablet PO SCH (09:46)
[2023-01-03 10:00] VITALS: BP 100/53
[2023-01-03 11:30] VITALS: BP 105/54
--- NOTE | 2023-01-03 12:31 | NUR ---
Initial: Pt admit DX dyspnea, type 2 MD, acute CHF, THONG, HFrEF, AKD, pancytopenia, hypokalemia, and hyponatremia secondary to CHF/diuretics per EMR. PO fluctuating ~67% avg overall heart healthy diet partially meeting estimated needs. RD recommends Ensure High Protein BIDBD MD notified. LBM 01/01 receiving routine colace per EMR. Will monitor for further PO trends and nutrition intervention needs this admit. Rec: 1. continue heart healthy diet per MD 2. Ensure High Protein BIDBD; pending MD verification in EMR 3. routine bowel care 4. daily scaled wts Addendum: 01/03/23 at [address] Amended: Links added.
[2023-01-03] MEDS: furosemide 40mg tablet PO SCH ×2 (12:52→20:58)
[2023-01-03 13:30] VITALS: BP 105/54
[2023-01-03 15:30] VITALS: BP 102/54
--- NOTE | 2023-01-03 16:29 | NUR ---
PAGER ID: [phone] MESSAGE: [id number] Spike would like a PRN breathing TX. It has been D/Cd. Can I reorder? Delicia RADER
[2023-01-03] MEDS: albuterol 2.5 MG/3 ML nebule NEB PRN ×2 (16:56→21:07)
[2023-01-03] MEDS: lactose-reduced food (Ensure High Protein) 237ml bottle PO SCH (17:30)
--- NOTE | 2023-01-03 18:11 | NUR ---
Problems reprioritized. Patient report given, questions answered & plan of care reviewed with Kati ROSS. Bedside report completed. Pt son remains at bedside. Addendum: 01/03/23 at 1811 by Delicia Patrick RN Amended: Links added.
[2023-01-03] MEDS: warfarin 3mg tablet PO SCH (21:01)
[2023-01-04] VITALS (14 sets, daily range): BP systolic 103–121; BP diastolic 49–64
[2023-01-04] MEDS: albuterol 2.5 MG/3 ML nebule NEB PRN ×3 (02:33→19:48)
[2023-01-04] MEDS: levoTHYROXINE 125mcg tablet PO SCH (05:21)
[2023-01-04 06:34] LABS: ALBUMIN 3.3 G/DL (3.4-5.0); ANION GAP 5 (8-16); BLOOD UREA NITROGEN 57 MG/DL (7-18); BUN/CREATININE RATIO 20.2 (5.4-32.0); CALCIUM 9.7 MG/DL (8.5-10.1); CHLORIDE 94 MMOL/L (99-107); CREATININE 2.82 MG/DL (0.60-1.10); GLUCOSE 100 MG/DL (70-104); POTASSIUM 3.4 MMOL/L (3.5-5.1); SODIUM 133 MMOL/L (135-145); TOTAL CARBON DIOXIDE 34.1 MMOL/L (24-32); eGFR 22 ML/MIN
[2023-01-04] MEDS: lactose-reduced food (Ensure High Protein) 237ml bottle PO SCH ×2 (07:30→17:25)
--- NOTE | 2023-01-04 07:38 | NUR ---
Patient in room PCU 3013. I have received report from CODY williamson and had the opportunity to ask questions and assume patient care.
[2023-01-04] MEDS: K and/or MAG REPLACEMENT MC SCH ×2 (08:00→20:00)
[2023-01-04] MEDS: docusate sod 100mg capsule PO SCH ×2 (08:00→19:25)
[2023-01-04] MEDS: DOBUTamine-DoBUTrex 500mg/D5W 250 ML IV SCH (10:28)
[2023-01-04] MEDS: tamsulosin 0.4mg capsule PO SCH (10:35)
[2023-01-04] MEDS: metolazone 2.5mg tablet PO SCH (10:36)
[2023-01-04] MEDS: hydroxychloroquine 200mg tablet PO SCH (10:36)
[2023-01-04] MEDS: spironolactone 25 MG tablet PO SCH (10:37)
[2023-01-04] MEDS: amiodarone 200mg tablet PO SCH (10:37)
[2023-01-04] MEDS: potassium Cl 20 mEq SR tablet PO SCH ×3 (10:38→23:56)
[2023-01-04] MEDS: atorvastatin 20mg tablet PO SCH (10:38)
--- NOTE | 2023-01-04 18:16 | NUR ---
Problems reprioritized. Patient report given, questions answered & plan of care reviewed with CODY LEDBETTER.
--- NOTE | 2023-01-04 18:35 | NUR ---
Patient in bed with the head of the be din high-fowlers position. Patient is watching TV and has no signs or symptoms of distress. patient connected to tele box 13. Call light within reach and all personal belongings within reach
[2023-01-04] MEDS: carVEDilol 3.125mg tablet PO SCH (19:23)
[2023-01-04] MEDS: warfarin 3mg tablet PO SCH (19:24)
[2023-01-04] MEDS ORDERED: furosemide 40mg tablet PO SCH (20:00)
[2023-01-05] VITALS (19 sets, daily range): BP systolic 91–118; BP diastolic 52–85
[2023-01-05] MEDS: DOBUTamine-DoBUTrex 500mg/D5W 250 ML IV SCH (02:20)
[2023-01-05] MEDS: levoTHYROXINE 125mcg tablet PO SCH (05:30)
--- NOTE | 2023-01-05 05:55 | NUR ---
Patient in bed with the head of the bed in semi-fowlers position. Patient is resting with his eyes closed. patient has no signs or symptoms of distress. call light within reach of the patient and all of his personal belongings.
[2023-01-05] MEDS ORDERED: DOBUTamine-DoBUTrex 500mg/D5W 250 ML IV SCH (07:11)
--- NOTE | 2023-01-05 07:11 | NUR ---
Pts vs are stable, rev'd sld teacher note. Decreased gtt to 3mcg/kg/min. Will continue to monitor.
[2023-01-05] MEDS: atorvastatin 20mg tablet PO SCH (07:39)
[2023-01-05] MEDS: amiodarone 200mg tablet PO SCH (07:40)
[2023-01-05] MEDS: tamsulosin 0.4mg capsule PO SCH (07:40)
[2023-01-05] MEDS: hydroxychloroquine 200mg tablet PO SCH (07:40)
[2023-01-05 07:42] LABS: ALBUMIN 3.3 G/DL (3.4-5.0); ANION GAP 6 (8-16); BLOOD UREA NITROGEN 61 MG/DL (7-18); BUN/CREATININE RATIO 20.9 (5.4-32.0); CALCIUM 9.2 MG/DL (8.5-10.1); CHLORIDE 95 MMOL/L (99-107); CREATININE 2.92 MG/DL (0.60-1.10); GLUCOSE 97 MG/DL (70-104); POTASSIUM 4.1 MMOL/L (3.5-5.1); SODIUM 134 MMOL/L (135-145); TOTAL CARBON DIOXIDE 33.5 MMOL/L (24-32); eGFR 21 ML/MIN
[2023-01-05] MEDS: spironolactone 25 MG tablet PO SCH (07:43)
[2023-01-05] MEDS: carVEDilol 3.125mg tablet PO SCH ×2 (07:43→18:59)
[2023-01-05] MEDS: docusate sod 100mg capsule PO SCH ×2 (07:43→18:59)
[2023-01-05] MEDS: lactose-reduced food (Ensure High Protein) 237ml bottle PO SCH ×2 (07:56→17:43)
[2023-01-05] MEDS: K and/or MAG REPLACEMENT MC SCH ×2 (08:00→20:00)
[2023-01-05] MEDS ORDERED: COR3.125T PO (11:01)
[2023-01-05] MEDS ORDERED: ALBU8HFA PO (11:01)
[2023-01-05] MEDS ORDERED: SPIR25TA PO ×2 (11:01)
--- NOTE | 2023-01-05 12:43 | NUR ---
PT is c/o SOB, lungs clear, VS stable and entered, no c/o pain. Pt doesn't feel good about going home. Put pt on 2L NC. Monitoring. Addendum: 01/05/23 at 1245 by Raeann Pryor RN Pt is bridgett in 50's. Monitoring
--- NOTE | 2023-01-05 13:06 | NUR ---
Praneeth LOMBARDO, NURSING PROJECT COORDINATOR [id number]. Spike. Pt c/o SOB 95% on RA, 100% on 2L. bridgett at 52-54. BP 94/61 sitting up in bed. Still c/o SOB. Pls advise.
--- NOTE | 2023-01-05 13:09 | NUR ---
Paged Dr Yoo PAGER ID: [phone] MESSAGE: [phone]. [place]. Pt c/o SOB 95% on RA, 100% on 2L. bridgett at 52-54. BP 94/61 sitting up in bed. Still c/o SOB. notified JK, ROLLER EMBOSSER as well. Thanks, Raeann [phone]
--- NOTE | 2023-01-05 14:05 | NUR ---
Spoke with MUNIRA, TRUCK SAFETY INSPECTOR. Advised of SOB, HR in 50's, and soft BP. She will go speak with patient and family. Monitoring.
--- NOTE | 2023-01-05 14:10 | NUR ---
Paged CM. Patient appealing d/c
--- NOTE | 2023-01-05 15:02 | NUR ---
Paged PAGER ID: [phone] MESSAGE: [id number]. Spike. Pt appealing d/c. IGOR zhao. FYI. Cary [phone]
[2023-01-05 15:53] LABS: A/G RATIO 1.4 (0.7-1.7); ALBUMIN 3.4 g/dL (2.9-4.4); BETA GLOBULIN 0.8 g/dL (0.7-1.3); GAMMA GLOBULIN 0.7 g/dL (0.4-1.8); GLOBULIN, TOTAL 2.5 g/dL (2.2-3.9); M-SPIKE Not Observed g/dL (Not Observed); PROTEIN, TOTAL, SERUM 5.9 g/dL (6.0-8.5)
--- NOTE | 2023-01-05 16:30 | NUR ---
Patient in bed with the head of the bed elevated to semi-fowlers position. Patient has no signs or symptoms of distress. This nurse educated the patient to use his call light and get assistance from staff before getting up out of bed to prevent risk for fall, patient verbalized and understanding. Call light within reach of patient and all personal belongings within reach of the patient.
--- NOTE | 2023-01-05 16:41 | NUR ---
Problems reprioritized. Patient report given, questions answered & plan of care reviewed with ELIZABETH Cyr. Addendum: 01/05/23 at 1854 by Raeann Pryor RN wrong patient - disregard
[2023-01-05] MEDS: potassium Cl 20 mEq SR tablet PO SCH (17:43)
--- NOTE | 2023-01-05 18:54 | NUR ---
Student Medication Administration: For this medication-pass time frame, all medication were reviewed, dispensed, administered and documented per hospital policy by .
--- NOTE | 2023-01-05 18:54 | NUR ---
Student documentation: I have reviewed and agree with all interventions, assessments performed and documented by Gloria.
--- NOTE | 2023-01-05 18:54 | NUR ---
Problems reprioritized. Patient report given, questions answered & plan of care reviewed with CODY Rueda.
[2023-01-05] MEDS: warfarin 3mg tablet PO SCH (19:00)
--- NOTE | 2023-01-05 19:44 | NUR ---
Paged Dr. Yancey to make him aware of the patient pulse rate is 48. Waiting for a call back
--- NOTE | 2023-01-05 22:00 | NUR ---
Dr. Yancey called back and stated to hold any other doses of coreg until morning 01/06/23, telephone repeat back given
--- NOTE | 2023-01-05 23:59 | NUR ---
Patient complains of SOB. Spoke with Dr. Yancey gave order for chest x ray and ABG for this patient, Telephone repeat back given
[2023-01-06] VITALS (21 sets, daily range): BP systolic 90–122; BP diastolic 54–76
[2023-01-06] MEDS: albuterol 2.5 MG/3 ML nebule NEB PRN ×2 (00:30→20:30)
[2023-01-06 00:39] LABS: ABG BASE EXCESS 4.6 mmol/L (-2.0-2.0); ABG HCO3 29.2 mmol/L (22.0-26.0); ABG OXYGEN SATURATION 85.8 % (94-97); ABG PCO2 (T) 43.5 mmHg (35.0-48.0); ABG PO2 (T) 53.6 mmHg (75.0-100.0); FCOHb 0.3 % (0.0-3.9); FMetHb 0.2 % (0.0-1.5); FO2Hb 85.4 % (94-97); TOTAL HEMOGLOBIN 12.9 G/dl (14.0-17.9)
--- NOTE | 2023-01-06 04:00 | NUR ---
Dr. Yancey made aware of the patient ABG results, no new orders given
[2023-01-06] MEDS: levoTHYROXINE 125mcg tablet PO SCH (05:22)
--- NOTE | 2023-01-06 05:31 | NUR ---
Patient in bed with the head of the bed elevated to a semi-fowlers position. Patient resting with his eyes open. Patient has no signs or symptoms of distress. Call light within reach of the patient and all personal belongings within reach
[2023-01-06] MEDS: K and/or MAG REPLACEMENT MC SCH ×2 (08:00→20:00)
[2023-01-06] MEDS: docusate sod 100mg capsule PO SCH ×2 (08:00→20:00)
--- NOTE | 2023-01-06 08:05 | NUR ---
Rec'd call from Dr Baumann: advised of HR 40-50's since 1500 01/05 to 0500 01/06. 60's now. cancel amiodarone and add cmp for today. Addendum: 01/06/23 at 1110 [address] Raeann Pryor RN Dr Baumann still wants me to give coreg 3.125 if HR more than 50
[2023-01-06] MEDS: carVEDilol 3.125mg tablet PO SCH (08:17)
[2023-01-06] MEDS: spironolactone 25 MG tablet PO SCH (08:17)
[2023-01-06] MEDS: tamsulosin 0.4mg capsule PO SCH (08:17)
[2023-01-06] MEDS: hydroxychloroquine 200mg tablet PO SCH (08:17)
[2023-01-06] MEDS: atorvastatin 20mg tablet PO SCH (08:17)
[2023-01-06] MEDS: lactose-reduced food (Ensure High Protein) 237ml bottle PO SCH ×2 (08:18→17:51)
[2023-01-06] MEDS: potassium Cl 20 mEq SR tablet PO SCH ×2 (08:30→17:30)
[2023-01-06 09:44] LABS: ALANINE AMINOTRANSFERASE 60 U/L (12-78); ALBUMIN 3.3 G/DL (3.4-5.0); ALBUMIN/GLOBULIN RATIO 1.3 (1.1-1.5); ALKALINE PHOSPHATASE 103 IU/L (46-116); ASPARTATE AMINO TRANSFERASE 73 U/L (10-37); BILIRUBIN,TOTAL 0.9 MG/DL (0.1-1.0); BLOOD UREA NITROGEN 78 MG/DL (7-18); CALCIUM 9.7 MG/DL (8.5-10.1); CREATININE 3.39 MG/DL (0.60-1.10); GLUCOSE 106 MG/DL (70-104); TOTAL CARBON DIOXIDE 33.7 MMOL/L (24-32); TOTAL PROTEIN 5.9 G/DL (6.4-8.2); eGFR 17 ML/MIN
[2023-01-06 10:42] LABS: ANION GAP 4 (8-16); CHLORIDE 96 MMOL/L (99-107); POTASSIUM 4.8 MMOL/L (3.5-5.1); SODIUM 134 MMOL/L (135-145)
--- NOTE | 2023-01-06 11:11 | NUR ---
missed dosed kdur d/t k 4.8
--- NOTE | 2023-01-06 11:58 | NUR ---
cancelled coreg per dr overton d/t HR 40's
[2023-01-06 12:14] LABS: CLARITY,URINE CLEAR (Clear); COLOR,URINE YELLOW (Yellow); GLUCOSE, URINE NEGATIVE (Neg); KETONES,URINE NEGATIVE (Neg); LEUKOCYTE ESTERASE ,URINE NEGATIVE (Neg); NITRITES, URINE NEGATIVE (Neg); OCCULT BLOOD,URINE NEGATIVE (Neg); PROTEIN,URINE NEGATIVE (Neg); TOTAL PROTEIN,URINE RANDOM 24.6 MG/DL; UROBILINOGEN,URINE 0.2 E.U/dL (0.2-1.0)
[2023-01-06 12:19] LABS: UA COLLECTION TYPE URINAL
[2023-01-06 13:00] LABS: UA EOSINOPHILS NO EOS /HPF
[2023-01-06] MEDS ORDERED: furosemide 40mg/4ml inj IV ONE (14:00)
[2023-01-06] MEDS: DOBUTamine-DoBUTrex 500mg/D5W 250 ML IV SCH (14:47)
[2023-01-06 15:58] LABS: ALBUMIN, UR Note: % (.); PROTEIN,TOTAL,URINE <4.0 mg/dL (Not Estab.)
--- NOTE | 2023-01-06 17:50 | NUR ---
non administered 20 meq kdur d/t K 4.8
[2023-01-06] MEDS: warfarin 3mg tablet PO SCH (19:36)
--- NOTE | 2023-01-06 20:36 | NUR ---
Patient in bed with the head of the bed elevated to high fowlers. Patient has no signs or symptoms of distress. Patient at bedside with the patient. Call light within reach of the patient and all personal belongings within reach of the patient
[2023-01-07] VITALS (11 sets, daily range): BP systolic 103–123; BP diastolic 54–61
--- NOTE | 2023-01-07 05:19 | NUR ---
Patient in bed with the head of the bed elevated to semi-fowlers position. Patient resting in bed with his eyes closed. Patient has no signs or symptoms of distress,. Call light within reach of patient and all personal belongings within reach of patient
[2023-01-07] MEDS: levoTHYROXINE 125mcg tablet PO SCH (05:27)
[2023-01-07] MEDS: lactose-reduced food (Ensure High Protein) 237ml bottle PO SCH ×2 (07:30→17:20)
[2023-01-07] MEDS: docusate sod 100mg capsule PO SCH ×2 (08:00→20:09)
[2023-01-07] MEDS: K and/or MAG REPLACEMENT MC SCH ×2 (08:00→18:35)
[2023-01-07] MEDS: DOBUTamine-DoBUTrex 500mg/D5W 250 ML IV SCH (08:56)
[2023-01-07] MEDS: furosemide 40mg/4ml inj IV SCH (08:56)
[2023-01-07] MEDS: atorvastatin 20mg tablet PO SCH (08:57)
[2023-01-07] MEDS: tamsulosin 0.4mg capsule PO SCH (08:57)
[2023-01-07] MEDS: potassium Cl 20 mEq SR tablet PO SCH ×2 (08:57→17:19)
[2023-01-07] MEDS: hydroxychloroquine 200mg tablet PO SCH (08:57)
[2023-01-07 09:02] LABS: ALANINE AMINOTRANSFERASE 55 U/L (12-78); ALBUMIN 3.2 G/DL (3.4-5.0); ALBUMIN/GLOBULIN RATIO 1.2 (1.1-1.5); ALKALINE PHOSPHATASE 99 IU/L (46-116); ANION GAP 5 (8-16); ASPARTATE AMINO TRANSFERASE 74 U/L (10-37); BLOOD UREA NITROGEN 76 MG/DL (7-18); BUN/CREATININE RATIO 23.2 (5.4-32.0); CALCIUM 9.3 MG/DL (8.5-10.1); CHLORIDE 94 MMOL/L (99-107); CREATININE 3.27 MG/DL (0.60-1.10); GLUCOSE 92 MG/DL (70-104); PHOSPHORUS 3.7 MG/DL (2.3-4.5); POTASSIUM 4.1 MMOL/L (3.5-5.1); SODIUM 132 MMOL/L (135-145); TOTAL CARBON DIOXIDE 32.8 MMOL/L (24-32); TOTAL PROTEIN 5.8 G/DL (6.4-8.2); eGFR 18 ML/MIN
--- NOTE | 2023-01-07 09:38 | NUR ---
Reassessment: PO intake slightly fluctuates however overall appears stable since last RD assessment (01/03) documented with average 67% PO intake of meals. Pt now receiving an Ensure High Protein BIDBD, documented with 25% PO intake of first ONS however 100% PO intake of the following three. Combined PO intake of meals and ONS is meeting 100% of patient's estimated nutrient needs. LBM 3/2 per I&O. No further nutrition intervention warranted at this time. Will continue to follow. Recommendations: 1. Continue heart healthy diet per MD 2. Ensure High Protein BIDBD 3. Routine bowel care 4. Weekly scaled wts Addendum: 01/07/23 at [address] Amended: Links added.
[2023-01-07] MEDS: albuterol 2.5 MG/3 ML nebule NEB PRN (10:41)
[2023-01-07] MEDS: carVEDilol 3.125mg tablet PO SCH (20:09)
[2023-01-07] MEDS: warfarin 3mg tablet PO SCH (20:10)
[2023-01-08] VITALS: BP 112/54
[2023-01-08 02:00] VITALS: BP 110/55
[2023-01-08] MEDS: DOBUTamine-DoBUTrex 500mg/D5W 250 ML IV SCH (03:29)
[2023-01-08 04:00] VITALS: BP 110/55
[2023-01-08] MEDS: levoTHYROXINE 125mcg tablet PO SCH (04:21)
--- NOTE | 2023-01-08 06:29 | NUR ---
Problems reprioritized. Patient report given, questions answered & plan of care reviewed with CODY Chavez.
[2023-01-08 07:00] VITALS: BP 112/56
[2023-01-08 08:00] LABS: BASOPHILS # (AUTO) 0.1 X10'3 (0-0.2); BASOPHILS % (AUTO) 1.3 % (0-1); EOSINOPHILS % (AUTO) 0.2 % (0-6); HEMATOCRIT 33.5 % (42.0-52.0); HEMOGLOBIN 11.3 g/dl (14.0-17.9); LYMPHOCYTES # (AUTO) 0.5 X10'3 (1.1-4.8); LYMPHOCYTES % (AUTO) 13.1 % (21-51); MEAN CORPUSCULAR HEMOGLOBIN 30.1 PG (27.0-31.0); MEAN CORPUSCULAR HGB CONC 33.7 g/dL (33.0-36.5); MEAN CORPUSCULAR VOLUME 89.5 FL (78-98); MEAN PLATELET VOLUME 8.2 FL (7.4-10.4); MONOCYTES # (AUTO) 0.5 X10'3 (0-0.9); MONOCYTES % (AUTO) 11.7 % (2-12); NEUTROPHILS % (AUTO) 73.7 % (42-75); PLATELET COUNT 114 X10'3 (140-440); RED BLOOD COUNT 3.74 X10'6 (4.70-6.10); WHITE BLOOD COUNT 4.1 X10'3 (4.5-11.0)
[2023-01-08] MEDS: K and/or MAG REPLACEMENT MC SCH (08:00)
[2023-01-08] MEDS: docusate sod 100mg capsule PO SCH (08:00)
[2023-01-08] MEDS: hydroxychloroquine 200mg tablet PO SCH (08:18)
[2023-01-08] MEDS: carVEDilol 3.125mg tablet PO SCH (08:18)
[2023-01-08] MEDS: tamsulosin 0.4mg capsule PO SCH (08:18)
[2023-01-08] MEDS: potassium Cl 20 mEq SR tablet PO SCH (08:18)
[2023-01-08] MEDS: atorvastatin 20mg tablet PO SCH (08:18)
[2023-01-08] MEDS: furosemide 40mg/4ml inj IV SCH (08:24)
[2023-01-08] MEDS: lactose-reduced food (Ensure High Protein) 237ml bottle PO SCH (08:24)
[2023-01-08 08:53] LABS: ALANINE AMINOTRANSFERASE 65 U/L (12-78); ALBUMIN 3.4 G/DL (3.4-5.0); ALBUMIN/GLOBULIN RATIO 1.2 (1.1-1.5); ALKALINE PHOSPHATASE 107 IU/L (46-116); ANION GAP 6 (8-16); ASPARTATE AMINO TRANSFERASE 83 U/L (10-37); BILIRUBIN,TOTAL 1.1 MG/DL (0.1-1.0); BLOOD UREA NITROGEN 75 MG/DL (7-18); BUN/CREATININE RATIO 24.4 (5.4-32.0); CALCIUM 9.2 MG/DL (8.5-10.1); CHLORIDE 93 MMOL/L (99-107); CREATININE 3.08 MG/DL (0.60-1.10); GLUCOSE 84 MG/DL (70-104); SODIUM 132 MMOL/L (135-145); TOTAL CARBON DIOXIDE 32.7 MMOL/L (24-32); TOTAL PROTEIN 6.2 G/DL (6.4-8.2); eGFR 19 ML/MIN
[2023-01-08] MEDS ORDERED: EMPA10TA PO (15:19)
== END 2023-01-08 13:10 | disposition home or self-care (01) | DRG 280 ==
LOC: ER 10:48 → ED HOLD 12:59 → PCU 3S 14:38
PROVIDERS: ADMIT Internal Medicine; ATTEND Internal Medicine
PROC: CB121ZZ Planar Nuclear Medicine Imaging of Lungs and Bronchi using Technetium 99m (Tc-99m) (ICD-10-PCS; principal; 2023-01-01)
DX: I13.0 Hypertensive heart and chronic kidney disease with heart failure and stage 1 through stage 4 chronic kidney disease, or unspecified chronic kidney disease (principal); I21.A1 Myocardial infarction type 2; I50.43 Acute on chronic combined systolic (congestive) and diastolic (congestive) heart failure; J96.01 Acute respiratory failure with hypoxia; D61.818 Other pancytopenia; E87.1 Hypo-osmolality and hyponatremia; N17.9 Acute kidney failure, unspecified; I48.0 Paroxysmal atrial fibrillation; E87.6 Hypokalemia; E78.00 Pure hypercholesterolemia, unspecified; G89.29 Other chronic pain; M25.512 Pain in left shoulder; D46.9 Myelodysplastic syndrome, unspecified; R00.1 Bradycardia, unspecified; I42.0 Dilated cardiomyopathy; I25.10 Atherosclerotic heart disease of native coronary artery without angina pectoris; N18.32 Chronic kidney disease, stage 3b; N50.89 Other specified disorders of the male genital organs; R79.1 Abnormal coagulation profile; Z79.84 Long term (current) use of oral hypoglycemic drugs; Z79.899 Other long term (current) drug therapy; Z82.49 Family history of ischemic heart disease and other diseases of the circulatory system; Z95.1 Presence of aortocoronary bypass graft; Z95.2 Presence of prosthetic heart valve; Z95.5 Presence of coronary angioplasty implant and graft; Z88.5 Allergy status to narcotic agent; Z79.82 Long term (current) use of aspirin
CPT/HCPCS: 36415; 36600; 71045; 71250; 76770; 78582; 80048; 80053; 81003; 82570; 82803; 83735; 83880; 84100; 84132; 84155; 84156; 84165; 84166; 84300; 84443; 84484; 85007; 85018; 85025; 85379; 85610; 85730; 87081; 87207; 93005; 93306; 94640; 94760; 97116; 97161; 97530; 99291; A9539; A9540; G0378; J1250; J1940; J7050

== ENCOUNTER 2023-08-08 23:20 | Inpatient (IN) | payer MEDICARE ==
[~2023-08-08] VITALS: Ht 185.4 cm; Wt 79.1 kg
[~2023-08-08 23:20] MED LIST changes: -AMIO200T61 PO; +COR3.125T PO; +EMPA10TA PO; +FLO0.4C PO; +GUAI-652 PO; +HYDR200T73 PO; -HYDR200T84 PO; -LOP12.5T PO; -POTA20PA40 PO; +SUMA100T16 PO; -WARF6TAB49 PO
[2023-08-09] VITALS (12 sets, daily range): BP systolic 110–123; BP diastolic 53–64; PULSE 40–76; RESP 15–20; TEMP 97.6–97.9; O2SAT 96–98
[2023-08-09] MEDS ORDERED: normal saline 1000ML IV soln IVB ONE (01:30)
[2023-08-09] MEDS ORDERED: ondansetron/PF 4mg/2ml inj IV ONE (01:30)
[2023-08-09] MEDS ORDERED: pantoprazole 40 MG vial IV ONE (01:30)
[2023-08-09] MEDS ORDERED: morphine 4 MG/ML inj SYRINge IV ONE (01:30)
[2023-08-09] MEDS ORDERED: pantoprazole 40MG/NS 100ML BAG 100 ML IV ONE (01:45)
[2023-08-09 02:29] LABS: APTT 37 SECONDS (22-32); INR 1.8 INR; PROTHROMBIN TIME 18.4 SECONDS (9.0-12.0)
[2023-08-09 02:31] LABS: ALANINE AMINOTRANSFERASE 43 U/L (12-78); ALBUMIN/GLOBULIN RATIO 1.2 (1.1-1.5); ALKALINE PHOSPHATASE 150 IU/L (46-116); ANION GAP 9 (8-16); ASPARTATE AMINO TRANSFERASE 71 U/L (10-37); BILIRUBIN,TOTAL 1.1 MG/DL (0.1-1.0); BLOOD UREA NITROGEN 42 MG/DL (7-18); BUN/CREATININE RATIO 15.7 (10.0-20.0); CALCIUM 10.1 MG/DL (8.5-10.1); CHLORIDE 105 MMOL/L (99-107); CREATININE 2.68 MG/DL (0.60-1.10); GLUCOSE 76 MG/DL (70-104); SODIUM 138 MMOL/L (135-145); TOTAL CARBON DIOXIDE 24.5 MMOL/L (24-32); TOTAL PROTEIN 5.5 G/DL (6.4-8.2); eCRCL 23 ML/MIN; eGFR 23 ML/MIN
[2023-08-09 02:34] LABS: BASOPHILS % (AUTO) 1.4 % (0-1); EOSINOPHILS % (AUTO) 0 % (0-6); HEMATOCRIT 32.8 % (42.0-52.0); HEMOGLOBIN 11.3 g/dl (14.0-17.9); LYMPHOCYTES # (AUTO) 0.6 X10'3 (1.1-4.8); LYMPHOCYTES % (AUTO) 28.1 % (21-51); MEAN CORPUSCULAR HEMOGLOBIN 34.2 PG (27.0-31.0); MEAN CORPUSCULAR HGB CONC 34.3 g/dL (33.0-36.5); MEAN CORPUSCULAR VOLUME 99.9 FL (78-98); MEAN PLATELET VOLUME 9.2 FL (7.4-10.4); MONOCYTES # (AUTO) 0.2 X10'3 (0-0.9); NEUTROPHILS # (AUTO) 1.2 X10'3 (1.8-7.7); NEUTROPHILS % (AUTO) 60.5 % (42-75); RED BLOOD COUNT 3.29 X10'6 (4.70-6.10); RED CELL DISTRIBUTION WIDTH 17.9 % (11.5-14.5)
[2023-08-09 02:35] LABS: MAGNESIUM 1.9 MG/DL (1.5-2.4)
[2023-08-09 04:37] LABS: PLATELET COUNT 50 X10'3 (140-440)
[2023-08-09 05:29] LABS: PLATELET ESTIMATE DECREASED; TOTAL CELLS COUNTED 100
[2023-08-09 05:30] LABS: ANISOCYTOSIS 1+
[2023-08-09 05:32] LABS: ACANTHOCYTES 1+
[2023-08-09 05:33] LABS: ELLIPTOCYTES 1+
[2023-08-09 08:19] LABS: BILIRUBIN,URINE NEGATIVE (Neg); CLARITY,URINE SLIGHTLY CLOUDY (Clear); COLOR,URINE YELLOW (Yellow); GLUCOSE, URINE 250 mg/dl (Neg); KETONES,URINE NEGATIVE (Neg); LEUKOCYTE ESTERASE ,URINE NEGATIVE (Neg); NITRITES, URINE NEGATIVE (Neg); OCCULT BLOOD,URINE NEGATIVE (Neg); PROTEIN,URINE NEGATIVE (Neg); UROBILINOGEN,URINE 0.2 E.U/dL (0.2-1.0)
[2023-08-09 08:37] LABS: UA COLLECTION TYPE CLN CATCH MIDSTREAM
[2023-08-09 08:38] LABS: MUCUS STRANDS FEW /LPF (Neg); SQUAMOUS EPITHELIAL CELL,UR FEW /LPF (FEW)
[2023-08-09 08:39] LABS: CAL OXALATE CRYSTALS 4+ /HPF (NEGATIVE)
[2023-08-09 08:40] LABS: BACTERIA,URINE FEW /HPF (Neg); RBC,URINE 0-2 /HPF (0-2); WBC,URINE 0-4 /HPF (0-4)
[2023-08-09] MEDS ORDERED: magnesium hydroxide 30ml (MOM) UD suspension PO PRN (10:50)
[2023-08-09] MEDS ORDERED: acetaminophen 325mg tablet PO PRN ×2 (10:50)
[2023-08-09] MEDS ORDERED: mag hydrox/Alum hydrox/simeth 30ml oral suspension PO PRN (10:50)
[2023-08-09] MEDS ORDERED: morphine 2 MG/ML inj. syringe IV PRN ×2 (10:50)
[2023-08-09] MEDS ORDERED: ondansetron/PF 4mg/2ml inj IV PRN (10:50)
[2023-08-09 11:35] LABS: PRO BRAIN NATRIURETIC PEPTIDE 14105 PG/ML (0-450)
--- NOTE | 2023-08-09 12:50 | NUR ---
Patient in room ED 7. I have received report from MRI TECHNOLOGIST and had the opportunity to ask questions and assume patient care.
[2023-08-09] MEDS ORDERED: WARF3TAB56 PO (12:58)
[2023-08-09] MEDS ORDERED: FURO-149 PO (12:58)
[2023-08-09] MEDS ORDERED: ATOR-2 PO (12:58)
[2023-08-09] MEDS ORDERED: LEVO125T PO (12:58)
[2023-08-09] MEDS ORDERED: FLO0.4C PO (12:58)
[2023-08-09] MEDS ORDERED: AMIO200T27 PO ×2 (12:58→13:00)
[2023-08-09] MEDS ORDERED: HYDR200T73 PO (12:58)
[2023-08-09] MEDS ORDERED: ASPI-611 PO (12:58)
[2023-08-09] MEDS ORDERED: EMPA10TA PO (12:58)
[2023-08-09] MEDS ORDERED: CARV3.122 PO (12:58)
[2023-08-09] MEDS ORDERED: furosemide 40mg tablet PO PRN (13:05)
--- NOTE | 2023-08-09 13:20 | NUR ---
Patient arrived to floor at this time, issues with bed cause ER nurse to leave patient with EMT at time of locating new bed. Patient was transferred to bed with 4 per son assist. bedding was changed and blankets provided. patient made familiar with room at this time. Family at bedside during skin assessment and transfer. Tele monitor 13 was placed on patient at this time and was found to be very bradycardic and will notify .
--- NOTE | 2023-08-09 13:44 | NUR ---
PAGER ID: [phone] MESSAGE: Vikas tele re: [phone] Spike, David Patient arrived to floor and I need clarification on diet order and HR parameter. Thanks [phone]
--- NOTE | 2023-08-09 14:28 | NUR ---
PAGER ID: [phone] MESSAGE: Vikas tele re: [phone] [id number] Spike, David Patient arrived to floor and I need clarification on diet order and HR parameter. Thanks
[2023-08-09] MEDS ORDERED: magnesium Cl slow-release 64mg tablet PO PRN (17:35)
[2023-08-09] MEDS ORDERED: potassium Cl 40MEQ/1/2NS 520ml 520 ML IV PRN (17:35)
[2023-08-09] MEDS ORDERED: DOBUTamine-DoBUTrex 500mg/D5W 250 ML IV ONE (17:35)
[2023-08-09] MEDS ORDERED: potassium Cl 20 mEq SR tablet PO PRN (17:35)
[2023-08-09] MEDS ORDERED: magnesium 4gm in 100ml NS 100 ML IV PRN (17:35)
[2023-08-09] MEDS ORDERED: magnesium 2GM in 50ml NS 50 ML IV PRN (17:35)
--- NOTE | 2023-08-09 18:43 | NUR ---
Problems reprioritized. Patient report given, questions answered & plan of care reviewed with Meghan ROSS. All questions about dobutamine drip, start time, rate change time answered at this time.
[2023-08-09] MEDS ORDERED: DOBUTamine-DoBUTrex 500mg/D5W 250 ML IV SCH ×2 (19:00→21:30)
[2023-08-09] MEDS: hydroxychloroquine 200mg tablet PO SCH (19:59)
[2023-08-09] MEDS: furosemide 40mg/4ml inj IV SCH (19:59)
[2023-08-09] MEDS: docusate sod 100mg capsule PO SCH (19:59)
[2023-08-09] MEDS: K and/or MAG REPLACEMENT MC SCH (20:00)
[2023-08-09] MEDS: DOBUTamine-DoBUTrex 500mg/D5W 250 ML IV SCH (21:32)
[2023-08-10] VITALS (13 sets, daily range): BP systolic 103–127; BP diastolic 53–80; PULSE 53–57; RESP 12–21; TEMP 97.8–98.9; O2SAT 92–98
--- NOTE | 2023-08-10 06:21 | NUR ---
Problems reprioritized. Patient report given, questions answered & plan of care reviewed with Lorenzo RN and Bettina ROSS.
--- NOTE | 2023-08-10 06:44 | NUR ---
Patient in room PCU 3013. I have received report from Meghan ROSS and had the opportunity to ask questions and assume patient care.
[2023-08-10 07:24] LABS: BASOPHILS % (AUTO) 1.3 % (0-1); EOSINOPHILS % (AUTO) 0 % (0-6); HEMATOCRIT 36.1 % (42.0-52.0); LYMPHOCYTES # (AUTO) 0.5 X10'3 (1.1-4.8); LYMPHOCYTES % (AUTO) 22.6 % (21-51); MEAN CORPUSCULAR HEMOGLOBIN 33.4 PG (27.0-31.0); MEAN CORPUSCULAR HGB CONC 33.4 g/dL (33.0-36.5); MEAN CORPUSCULAR VOLUME 100.2 FL (78-98); MEAN PLATELET VOLUME 8.7 FL (7.4-10.4); MONOCYTES # (AUTO) 0.2 X10'3 (0-0.9); MONOCYTES % (AUTO) 8.2 % (2-12); NEUTROPHILS # (AUTO) 1.6 X10'3 (1.8-7.7); NEUTROPHILS % (AUTO) 67.9 % (42-75); PLATELET COUNT 62 X10'3 (140-440); RED CELL DISTRIBUTION WIDTH 17.5 % (11.5-14.5); WHITE BLOOD COUNT 2.3 X10'3 (4.5-11.0)
[2023-08-10 07:38] LABS: INR 1.5 INR; PROTHROMBIN TIME 15.4 SECONDS (9.0-12.0)
[2023-08-10] MEDS ORDERED: lactulose 20gm/30ml cup PO ONE (07:45)
[2023-08-10 07:56] LABS: ACANTHOCYTES 2+; ANISOCYTOSIS 1+; LARGE PLATELETS FEW; PLATELET ESTIMATE DECREASED; TOTAL CELLS COUNTED 100
[2023-08-10] MEDS: docusate sod 100mg capsule PO SCH ×2 (08:00→20:19)
[2023-08-10] MEDS ORDERED: carVEDilol 3.125mg tablet PO SCH (08:00)
[2023-08-10] MEDS: K and/or MAG REPLACEMENT MC SCH ×2 (08:00→20:00)
[2023-08-10] MEDS: aspirin 81mg, enteric-coated 1 TAB TABLET.DR PO SCH (08:00)
[2023-08-10 08:30] LABS: ANION GAP 8 (8-16); BLOOD UREA NITROGEN 45 MG/DL (7-18); BUN/CREATININE RATIO 17.2 (10.0-20.0); CHLORIDE 105 MMOL/L (99-107); CREATININE 2.62 MG/DL (0.60-1.10); GLUCOSE 79 MG/DL (70-104); SODIUM 139 MMOL/L (135-145); TOTAL CARBON DIOXIDE 26.5 MMOL/L (24-32)
[2023-08-10 08:31] LABS: ALANINE AMINOTRANSFERASE 41 U/L (12-78); ALBUMIN 3.2 G/DL (3.4-5.0); ALBUMIN/GLOBULIN RATIO 1.2 (1.1-1.5); ALKALINE PHOSPHATASE 155 IU/L (46-116); ASPARTATE AMINO TRANSFERASE 69 U/L (10-37); BILIRUBIN,TOTAL 1.3 MG/DL (0.1-1.0); CALCIUM 9.9 MG/DL (8.5-10.1); MAGNESIUM 2.2 MG/DL (1.5-2.4); PRO BRAIN NATRIURETIC PEPTIDE 16218 PG/ML (0-450); TOTAL PROTEIN 5.9 G/DL (6.4-8.2); eCRCL 24 ML/MIN; eGFR 23 ML/MIN
[2023-08-10] MEDS: levoTHYROXINE 125mcg tablet PO SCH (09:05)
[2023-08-10] MEDS: furosemide 40mg/4ml inj IV SCH ×2 (09:06→20:14)
[2023-08-10] MEDS: EMPAGLIFLOZIN 10 MG TABLET PO SCH (09:06)
[2023-08-10] MEDS: amiodarone 100mg tablet PO SCH (09:06)
[2023-08-10] MEDS: tamsulosin 0.4mg capsule PO SCH (09:07)
[2023-08-10] MEDS: hydroxychloroquine 200mg tablet PO SCH ×2 (09:07→20:12)
[2023-08-10] MEDS: atorvastatin 20mg tablet PO SCH (09:08)
[2023-08-10 10:33] LABS: % IRON SATURATION 31 % (11-46); IRON 74 UG/DL (53-167); TOTAL IRON BINDING CAPACITY 235 UG/DL (259-388)
[2023-08-10] MEDS ORDERED: ondansetron 4mg rapidly disintigrating tab PO PRN (13:10)
[2023-08-10] MEDS ORDERED: folic acid 1mg tablet PO ONE (14:30)
[2023-08-10] MEDS: DOBUTamine-DoBUTrex 500mg/D5W 250 ML IV SCH (16:26)
--- NOTE | 2023-08-10 18:17 | NUR ---
Problems reprioritized. Patient report given, questions answered & plan of care reviewed with Meghan ROSS.
[2023-08-10] MEDS ORDERED: warfarin 3mg tablet PO ONE (21:00)
[2023-08-10] MEDS ORDERED: warfarin 3mg tablet PO SCH (21:00)
[2023-08-11] VITALS (13 sets, daily range): BP systolic 95–124; BP diastolic 46–61; PULSE 54–59; RESP 14–19; TEMP 97.2–98.9; O2SAT 95–100
[2023-08-11] MEDS ORDERED: lactulose 20gm/30ml cup PO PRN (06:00)
--- NOTE | 2023-08-11 06:18 | NUR ---
Problems reprioritized. Patient report given, questions answered & plan of care reviewed with Jeanette ROSS and Bettina ROSS.
[2023-08-11 07:32] LABS: BASOPHILS % (AUTO) 0.8 % (0-1); EOSINOPHILS % (AUTO) 0.1 % (0-6); HEMATOCRIT 33.9 % (42.0-52.0); HEMOGLOBIN 11.2 g/dl (14.0-17.9); LYMPHOCYTES # (AUTO) 0.5 X10'3 (1.1-4.8); LYMPHOCYTES % (AUTO) 23.9 % (21-51); MEAN CORPUSCULAR HEMOGLOBIN 33.1 PG (27.0-31.0); MEAN CORPUSCULAR HGB CONC 33.1 g/dL (33.0-36.5); MEAN CORPUSCULAR VOLUME 100.1 FL (78-98); MEAN PLATELET VOLUME 8.8 FL (7.4-10.4); MONOCYTES # (AUTO) 0.2 X10'3 (0-0.9); MONOCYTES % (AUTO) 11.4 % (2-12); NEUTROPHILS # (AUTO) 1.3 X10'3 (1.8-7.7); NEUTROPHILS % (AUTO) 63.8 % (42-75); PLATELET COUNT 60 X10'3 (140-440); RED BLOOD COUNT 3.39 X10'6 (4.70-6.10); RED CELL DISTRIBUTION WIDTH 17.5 % (11.5-14.5)
[2023-08-11 07:35] LABS: INR 1.5 INR; PROTHROMBIN TIME 15.3 SECONDS (9.0-12.0)
[2023-08-11 07:54] LABS: ALANINE AMINOTRANSFERASE 36 U/L (12-78); ALBUMIN/GLOBULIN RATIO 1.2 (1.1-1.5); ALKALINE PHOSPHATASE 142 IU/L (46-116); ANION GAP 7 (8-16); ASPARTATE AMINO TRANSFERASE 60 U/L (10-37); BILIRUBIN,TOTAL 1.3 MG/DL (0.1-1.0); BLOOD UREA NITROGEN 40 MG/DL (7-18); BUN/CREATININE RATIO 15.2 (10.0-20.0); CALCIUM 9.7 MG/DL (8.5-10.1); CHLORIDE 103 MMOL/L (99-107); CREATININE 2.63 MG/DL (0.60-1.10); GLUCOSE 97 MG/DL (70-104); MAGNESIUM 2.2 MG/DL (1.5-2.4); POTASSIUM 3.4 MMOL/L (3.5-5.1); PRO BRAIN NATRIURETIC PEPTIDE 18375 PG/ML (0-450); SODIUM 138 MMOL/L (135-145); TOTAL CARBON DIOXIDE 28.2 MMOL/L (24-32); TOTAL PROTEIN 5.6 G/DL (6.4-8.2); eCRCL 24 ML/MIN; eGFR 23 ML/MIN
[2023-08-11] MEDS: K and/or MAG REPLACEMENT MC SCH ×2 (08:00→20:00)
[2023-08-11] MEDS: levoTHYROXINE 125mcg tablet PO SCH (08:38)
[2023-08-11] MEDS: furosemide 40mg/4ml inj IV SCH ×2 (08:38→21:13)
[2023-08-11 08:39] LABS: ACANTHOCYTES 1+; ANISOCYTOSIS 1+; BURR CELLS 1+; GIANT PLATELET FEW; LARGE PLATELETS FEW; PLATELET ESTIMATE DECREASED; TOTAL CELLS COUNTED 100
[2023-08-11] MEDS: folic acid 1mg tablet PO SCH (08:39)
[2023-08-11] MEDS: potassium Cl 20 mEq SR tablet PO PRN ×3 (08:39→22:53)
[2023-08-11] MEDS: aspirin 81mg, enteric-coated 1 TAB TABLET.DR PO SCH (08:39)
[2023-08-11] MEDS: docusate sod 100mg capsule PO SCH ×2 (08:39→21:13)
[2023-08-11] MEDS: tamsulosin 0.4mg capsule PO SCH (08:40)
[2023-08-11] MEDS: hydroxychloroquine 200mg tablet PO SCH ×2 (08:40→21:12)
[2023-08-11] MEDS: atorvastatin 20mg tablet PO SCH (08:40)
[2023-08-11] MEDS: EMPAGLIFLOZIN 10 MG TABLET PO SCH (08:41)
[2023-08-11] MEDS: amiodarone 100mg tablet PO SCH (08:41)
[2023-08-11] MEDS ORDERED: furosemide 40mg/4ml inj IV ONE (16:00)
[2023-08-11] MEDS ORDERED: DOBUTamine-DoBUTrex 500mg/D5W 250 ML IV SCH (17:00)
--- NOTE | 2023-08-11 18:52 | NUR ---
Problems reprioritized. Patient report given, questions answered & plan of care reviewed with Meghan ROSS, patient stable at transfer of care.
[2023-08-11] MEDS ORDERED: warfarin 5mg tablet PO ONE (21:00)
[2023-08-12] VITALS: BP 117/61; PULSE 55; RESP 14
[2023-08-12 02:00] VITALS: BP 105/53; PULSE 57; RESP 18; TEMP 97.4; O2SAT 99
[2023-08-12 04:00] VITALS: BP 110/53; PULSE 56; RESP 16
[2023-08-12 06:00] VITALS: BP 114/55; PULSE 66; RESP 16; TEMP 97.6; O2SAT 96
--- NOTE | 2023-08-12 06:27 | NUR ---
Problems reprioritized. Patient report given, questions answered & plan of care reviewed with Mel ROSS.
[2023-08-12 06:56] LABS: BASOPHILS % (AUTO) 1.1 % (0-1); EOSINOPHILS % (AUTO) 0 % (0-6); HEMATOCRIT 35.1 % (42.0-52.0); HEMOGLOBIN 11.8 g/dl (14.0-17.9); LYMPHOCYTES # (AUTO) 0.6 X10'3 (1.1-4.8); LYMPHOCYTES % (AUTO) 25.7 % (21-51); MEAN CORPUSCULAR HEMOGLOBIN 33.5 PG (27.0-31.0); MEAN CORPUSCULAR HGB CONC 33.5 g/dL (33.0-36.5); MEAN PLATELET VOLUME 8.5 FL (7.4-10.4); MONOCYTES # (AUTO) 0.2 X10'3 (0-0.9); MONOCYTES % (AUTO) 10.6 % (2-12); NEUTROPHILS # (AUTO) 1.4 X10'3 (1.8-7.7); NEUTROPHILS % (AUTO) 62.6 % (42-75); PLATELET COUNT 59 X10'3 (140-440); RED BLOOD COUNT 3.51 X10'6 (4.70-6.10); RED CELL DISTRIBUTION WIDTH 17.7 % (11.5-14.5); WHITE BLOOD COUNT 2.2 X10'3 (4.5-11.0)
[2023-08-12] MEDS: levoTHYROXINE 125mcg tablet PO SCH (07:00)
[2023-08-12 07:06] LABS: HBSAG SCREEN Negative (Negative); HEP B CORE AB, TOT Negative (Negative)
[2023-08-12 07:08] LABS: INR 1.5 INR; PROTHROMBIN TIME 16.1 SECONDS (9.0-12.0)
[2023-08-12 07:10] LABS: ALANINE AMINOTRANSFERASE 35 U/L (12-78); ALBUMIN 3.3 G/DL (3.4-5.0); ALBUMIN/GLOBULIN RATIO 1.3 (1.1-1.5); ALKALINE PHOSPHATASE 144 IU/L (46-116); ANION GAP 6 (8-16); ASPARTATE AMINO TRANSFERASE 61 U/L (10-37); BILIRUBIN,TOTAL 1.3 MG/DL (0.1-1.0); BLOOD UREA NITROGEN 40 MG/DL (7-18); BUN/CREATININE RATIO 15.4 (10.0-20.0); CALCIUM 9.8 MG/DL (8.5-10.1); CHLORIDE 102 MMOL/L (99-107); CREATININE 2.59 MG/DL (0.60-1.10); GLUCOSE 88 MG/DL (70-104); MAGNESIUM 2.2 MG/DL (1.5-2.4); PHOSPHORUS 3.2 MG/DL (2.3-4.5); POTASSIUM 3.4 MMOL/L (3.5-5.1); SODIUM 138 MMOL/L (135-145); TOTAL CARBON DIOXIDE 30.5 MMOL/L (24-32); TOTAL PROTEIN 5.9 G/DL (6.4-8.2); eCRCL 24 ML/MIN; eGFR 24 ML/MIN
[2023-08-12 07:45] LABS: TOTAL CELLS COUNTED 100
[2023-08-12 07:46] LABS: ANISOCYTOSIS 1+; PLATELET ESTIMATE DECREASED
[2023-08-12 07:47] LABS: ACANTHOCYTES 1+; BURR CELLS 1+; LARGE PLATELETS FEW
[2023-08-12] MEDS: K and/or MAG REPLACEMENT MC SCH (08:00)
[2023-08-12] MEDS ORDERED: DOBUTamine-DoBUTrex 500mg/D5W 250 ML IV SCH (08:00)
[2023-08-12] MEDS: furosemide 40mg/4ml inj IV SCH (08:49)
[2023-08-12] MEDS: aspirin 81mg, enteric-coated 1 TAB TABLET.DR PO SCH (08:50)
[2023-08-12] MEDS: tamsulosin 0.4mg capsule PO SCH (08:50)
[2023-08-12] MEDS: atorvastatin 20mg tablet PO SCH (08:50)
[2023-08-12] MEDS: folic acid 1mg tablet PO SCH (08:50)
[2023-08-12] MEDS: amiodarone 100mg tablet PO SCH (08:50)
[2023-08-12] MEDS: docusate sod 100mg capsule PO SCH (08:50)
[2023-08-12] MEDS: EMPAGLIFLOZIN 10 MG TABLET PO SCH (08:50)
[2023-08-12] MEDS: hydroxychloroquine 200mg tablet PO SCH (08:50)
--- NOTE | 2023-08-12 11:15 | NUR ---
Discharge instructions discussed with pt and . medications and follow up appointments were discussed. all questions answered. pt and spouse verbalize understanding of all instructions. pt will leave unit via wheelchair to private c ar.
[2023-08-12] MEDS ORDERED: warfarin 3mg tablet PO ONE (21:00)
[2023-08-14] MEDS ORDERED: MAGN400O6 PO ×2 (07:01)
[2023-08-14] MEDS ORDERED: DOCU-148 PO (07:01)
[2023-08-16] MEDS ORDERED: EMPA10TA PO (18:48)
[2023-08-16] MEDS ORDERED: POTA-366 PO (18:48)
[2023-08-16] MEDS ORDERED: FERR-119 PO (18:48)
[2023-08-16] MEDS ORDERED: VITA800012 PO (18:56)
[2023-08-16] MEDS ORDERED: L.AC1CAP6 PO (18:57)
== END 2023-08-12 11:35 | disposition home health service (06) | DRG 280 ==
LOC: ER 23:21 → ED HOLD 08-09 10:51 → PCU 3S 08-09 12:50
PROVIDERS: ADMIT Internal Medicine; ATTEND Internal Medicine
DX: I13.0 Hypertensive heart and chronic kidney disease with heart failure and stage 1 through stage 4 chronic kidney disease, or unspecified chronic kidney disease (principal); I21.4 Non-ST elevation (NSTEMI) myocardial infarction; I50.23 Acute on chronic systolic (congestive) heart failure; D61.818 Other pancytopenia; N18.4 Chronic kidney disease, stage 4 (severe); R18.8 Other ascites; N17.9 Acute kidney failure, unspecified; K40.90 Unilateral inguinal hernia, without obstruction or gangrene, not specified as recurrent; I42.0 Dilated cardiomyopathy; K80.20 Calculus of gallbladder without cholecystitis without obstruction; M06.9 Rheumatoid arthritis, unspecified; Z96.653 Presence of artificial knee joint, bilateral; M19.90 Unspecified osteoarthritis, unspecified site; I25.10 Atherosclerotic heart disease of native coronary artery without angina pectoris; I71.20 Thoracic aortic aneurysm, without rupture, unspecified; I48.0 Paroxysmal atrial fibrillation; D53.9 Nutritional anemia, unspecified; I27.20 Pulmonary hypertension, unspecified; K74.60 Unspecified cirrhosis of liver; E78.5 Hyperlipidemia, unspecified; K59.00 Constipation, unspecified; N50.819 Testicular pain, unspecified; G47.30 Sleep apnea, unspecified; E03.9 Hypothyroidism, unspecified; Z95.1 Presence of aortocoronary bypass graft; Z95.2 Presence of prosthetic heart valve; Z95.0 Presence of cardiac pacemaker; Z82.49 Family history of ischemic heart disease and other diseases of the circulatory system; I25.2 Old myocardial infarction; Z63.4 Disappearance and death of family member; Z88.6 Allergy status to analgesic agent; Z95.5 Presence of coronary angioplasty implant and graft
CPT/HCPCS: 36415; 71045; 74176; 76700; 76870; 80053; 81001; 82607; 83540; 83550; 83735; 83880; 84100; 84484; 85007; 85025; 85610; 85730; 86704; 87340; 93005; 93976; 97161; 97530; 97535; 99285; C9113; G0378; J1250; J1940; J7030